=== PATIENT | male | born 1950 | race Caucasian/White ===

== ENCOUNTER 2024-02-10 22:49 | Inpatient (IN) | payer MEDICARE, BC, SELFPAY ==
[2024-02-10 19:20] VITALS: BP 130/61
--- NOTE | 2024-02-10 19:27 | ED.GENMED ---
History of Present Illness
General
Chief Complaint: Fainting/Passed Out
Source: patient, records, spouse, healthcare financial analyst and ambulance crew
Exam Limitations: clinical condition
Time Seen by Provider: 02/10/24 19:21
Nursing documentation reviewed up to this point in time: agreed with
Travel History
Have you had any contact with someone who has COVID-19?: No
Do you have any symptoms of coronavirus? Fever > 100 degrees, chills, cough, shortness of breath, sore throat, loss of taste or smell, muscle aches, or headache?: No
History of Present Illness
History of Present Illness:
Patient is a 73-year-old quadriplegic male with chronic indwelling Velez presents to the emergency department with prolonged period of hypotension. Patient typically has episodes of hypotension and becomes syncopal anywhere from 5 minutes to an
hour. However today it lasted for over 2 hours. Patient was started on an antibiotic this morning because his urine looks questionably infected. Patient has not had fevers. Patient is complaining of muscle pain at this time and has not received
his baclofen since noon time. Patient has not had a fever. Patient was also noted to have a cough. Patient is disoriented.
Past History
Past History
ED Past Medical History: Other (Cervical spinal cord injury 2014) and Other (Kidney stones, orthostatic hypotension, neurogenic bladder with indwelling Velez, hyponatremia, mineralocorticoid deficiency)
Social History
Tobacco: Non-smoker
Personal:
Review of Systems
Review of Systems
All Other Systems: ROS reviewed and negative except as documented in HPI and ROS
Constitutional: Reports fatigue; Denies fever or chills
EENT: Reports no symptoms
Respiratory: Reports cough; Denies trouble breathing
Cardiac: Reports no symptoms
ABD/GI: Reports no symptoms
: Reports dark urine
Musculoskeletal: Reports muscle pain
Skin: Reports no symptoms
Neurological: Reports other (Chronic quadriplegia)
Phy Exam
Physical Exam
Physical Exam:
Physical Exam
General: mild to moderate distress, alert and usual mental status, well nourished, well hydrated
HENT: Normocephalic, supple with no lymphadenopathy, no thyromegaly
Eyes: Clear sclera, conjuctiva without injection
Heart: Regular rhythm and rate. No S3, S4. No murmur. No NVD
Lungs: No respiratory distress, no stridor, lung sounds are coarse but clear and equal bilaterally, chest wall symmetrical and nontender
Abdomen: Soft, nontender, no organomegaly, BS good
Neuro: Alert and oriented to name, CN II - XII intact, spastic quadriplegia
Skin: no rash
Extremities: No edema, cyanosis
Scores
Heart Failure Risk
Heart Failure Risk Score: Not Applicable
Heart Score for Chest Pain Patients
STEMI patient?: Not applicable
Withdrawal Assessment of Alcohol
Withdrawal Assessment Completed?: Not applicable
Course
Orders/Labs/Results
Orders:
Orders
02/10/24 19:23
Cardiac Monitoring- Treatment ONCE
0.9% Sodium Chloride 1000 ml [Nss] 1,000 ml IV BOLUS
Pulse Ox/cont/shift [RESP] Urgent
Quantity: 1
02/10/24 19:24
Electrocardiogram (*1) Urgent
Reason for Study: Other
Other Reason for Exam: sepsis
EKG- Treatment ONCE
CR Chest - 2 Views Urgent
Comment:
Reason For Exam: hypotension and cough
02/10/24 19:32
Complete Blood Count/With Diff Urgent
Lactic Acid Q4H
Comment: CANCEL 2nd LACTIC ACID IF 1st LACTIC ACID IS LESS THAN 2
Blood Culture Q30M
CARLITO Source: Blood/Venous
Specimen Description:
Tizanidine [Zanaflex] 4 mg PO NOW STA
02/10/24 19:42
Baclofen [Lioresal] 30 mg PO NOW STA
02/10/24 19:49
Blood Culture Q30M
CARLITO Source: Blood/Venous
Specimen Description:
02/10/24 20:00
Baclofen [Lioresal] 90 mg PO BID
02/10/24 20:07
Comprehensive Metabolic Panel Urgent
Urinalysis Reflex To Culture Urgent
Date Specimen was Collected: 02/10/24
Time Specimen was Collected: 19:50
Urine Microscopic Reflex Cult Urgent
Urine Culture Urgent
CARLITO Source: U
Specimen Description:
Date Specimen was Collected: 02/10/24
Time Specimen was Collected: 19:50
02/10/24 20:37
3% Sodium Chloride 250 ml [Sodium Chloride 3%] 250 ml IV ONCE
02/10/24 20:41
Cefepime HCl [Maxipime] 2,000 mg IV NOW STA
Gentamicin Sulfate [Gentamicin] 140 mg 0.9% Sodium Chloride [Nss] 50 ml IV NOW
02/10/24 20:45
0.9% Sodium Chloride 1000 ml [Nss] 1,000 ml IV 200 mls/hr
02/10/24 23:30
Lactic Acid Q4H
Comment: CANCEL 2nd LACTIC ACID IF 1st LACTIC ACID IS LESS THAN 2
Abnormal Lab Results
02/10/24 02/10/24
19:32 20:07
WBC 17.2 H 10^3/uL
(4.8-10.8)
RBC 4.19 L 10^6/uL
(4.70-6.10)
Hgb 12.5 L g/dL
(13.0-18.0)
Hct 35.5 L %
(39.0-52.0)
RDW 14.7 H %
(11.5-14.5)
Plt Count 121 L 10^3/uL
(130-400)
MPV 10.9 H fL
(7.4-10.4)
Abs Immat Gran (auto) 0.1 H 10^3/uL
(0-0.05)
Absolute Neuts (auto) 14.8 H 10^3/uL
(1.4-6.5)
Absolute Lymphs (auto) 1.0 L 10^3/uL
(1.2-3.4)
Absolute Monos (auto) 1.2 H 10^3/uL
(0.1-0.6)
Immature Gran % 0.7 H %
(0-0.5)
Neutrophils % 86.0 H %
(42.2-75.2)
Lymphocytes % 6.0 L %
(20.5-51.1)
Sodium 117 L* mmol/L
(135-145)
Chloride 90 L mmol/L
(98-107)
Creatinine 0.6 L mg/dL
(0.7-1.3)
Glucose 106 H mg/dl
(70-99)
Calcium 8.2 L mg/dl
(8.4-10.2)
AST 60 H U/L
(17-59)
Alkaline Phosphatase 143 H U/L
(38-126)
Total Protein 5.7 L g/dl
(6.3-8.2)
Albumin 2.9 L g/dl
(3.5-5.0)
Urine Ketones 3+ A
(Negative)
Ur Occult Blood Reflex 3+ A
(Negative)
Urine Nitrite (Reflex) Positive A
(Negative)
Leukocyte Esterase Rfl 2+ A
(Negative)
Urine RBC 11-15 A /HPF
(0-2)
Urine WBC (Reflex) 50-60 A /HPF
(0-5)
Urine Bacteria (Reflex) Many A
(Negative)
02/10/24 19:32
02/10/24 20:07
Vital Signs
Initial and Last Documented VS:
Initial Vital Signs
Temp Pulse Resp BP Pulse Ox
97.5 F 69 16 130/61 95
02/10/24 19:20 02/10/24 19:20 02/10/24 19:20 02/10/24 19:20 02/10/24 19:20
Last Documented Vital Signs
Temp Pulse Resp BP Pulse Ox
97.5 F 77 16 132/66 95
02/10/24 19:20 02/10/24 20:15 02/10/24 20:15 02/10/24 20:00 02/10/24 19:20
*Radiology
Radiology exam reviewed: preliminary read by ED provider (LEON)
*Pulse Oximetry
Patient hypoxic: no
*EKG
Interpreted by ED Provider?: Yes
EKG Intrepretation Date: 02/10/24
EKG Intrepretation Time: 20:45
Interpretation: normal
Comparison EKG: no changes
Heart Rate: 71
Rate: normal
Rhythm: sinus
[place]: normal axis
Interval: normal interval
QRS Pattern: normal QRS
Ischemia: no ischemia
*Quality Assurance Tech Interpretation
Rate: normal
Interpretation: normal
Heart Rate: 70
Rhythm: sinus
*Critical Care Note
Total Time (30-74mins, 75-104mins- exclusive of procedures): 35 minutes
Update Note
Update Note:
Patient has significant hyponatremia and will be placed on 3%. In addition patient has elevated white count along with what appears to be UTI. Patient will be started on antibiotics.
ED Attending Note
-
Portions of this chart may have been created with voice recognition software.� Occasional wrong word or��sound alike� substitutions may have occurred due to the inherent limitations of voice recognition software.
Discharge Plan
Departure
Patient Disposition: Admit
Date of Disposition: 02/10/24
Time of Disposition: 20:46
Admit to: Telemetry
Admit to doctor: Hospitalist
Presentation/result/management discussed w/ accepting MD/DO: Hospitalist
Patient with high blood pressure during this ER visit?: No
Condition: Serious
Covid-19: Not Applicable
Discharge Problem:
Acute hyponatremia, Acute UTI, Syncope due to orthostatic hypotension
Prescriptions:
No Action
tizanidine 2 MG tablet
2 mg PO BID@0800,1600
tolterodine 4 MG capsule,extended release 24hr
4 mg PO HS
baclofen 10 MG tablet
30 mg PO QID@08,12,16,20
gabapentin 100 MG capsule
100 mg PO TID@0800,1200,1600
famotidine 20 MG tablet
20 mg PO DAILY
fludrocortisone 0.1 MG tablet
0.1 mg PO BID@0800,1200
multivitamin with folic acid [Tab-A-Queenie] 1 TABLET tablet
1 tab PO DAILY
Lidocaine 2%
1 applic IA DAILY PRN (Reason: prior to bowel program)
hydrocortisone 1 % Lotion
1 applic TOPICAL DAILY
Rx Instructions:
apply to face
cranberry 450 mg Tablet
4,200 mg PO DAILY
tizanidine 2 mg tablet
4 mg PO BID@1200,2000
hydrocortisone 2.5 % cream
1 applic TOPICAL HS
Rx Instructions:
apply to face
cholecalciferol (vitamin D3) [Vitamin D3] 50 mcg (2,000 unit) Tablet
50 mcg PO DAILY
docusate sodium [Enemeez] 283 mg/5 mL Enema
283 mg IA DAILY PRN (Reason: part of bowel program)
magnesium oxide 500 mg Tablet
500 mg PO BID Qty: 30 0RF
Interventions
Interventions:
*Risk Screen - Suicide Last Done: 02/10/24 19:24
*General Assessment Last Done: 02/10/24 19:23
*Neglect/Abuse Screening Last Done: 02/10/24 19:24
*ED COVID-19 Vaccine History Last Done: 02/10/24 19:23
ED- Cardiac Assessment Last Done: 02/10/24 19:24
ED- Neurological Assessment Last Done: 02/10/24 19:35
Discharge Date and Time
Print Language: FAROESE
[2024-02-10] MEDS: ZANAFLEX 4 MG PO (19:40)
[2024-02-10] MEDS: LIORESAL 30 MG PO (19:44)
[2024-02-10] MEDS: NSS 1000 IV ×2 (19:47→20:56)
[2024-02-10 19:54] LABS: % Basophils 0.3 % (0-2); % Eosinophils 0.2 % (0-6); % Immature Granulocytes 0.7 % (0-0.5); % Monocytes 6.8 % (1.7-9.3); Absolute Basophils 0.1 10^3/uL (0-0.2); Absolute Immature Granulocytes 0.1 10^3/uL (0-0.05); Absolute Monocytes 1.2 10^3/uL (0.1-0.6); Absolute Neutrophils 14.8 10^3/uL (1.4-6.5); Hematocrit 35.5 % (39.0-52.0); Hemoglobin 12.5 g/dL (13.0-18.0); Mean Corp Hgb Conc. 35.2 g/dL (33.0-37.0); Mean Corpuscular Hgb 29.8 pg (27.0-31.0); Mean Corpuscular Volume 84.7 fL (80.0-94.0); Mean Platelet Volume 10.9 fL (7.4-10.4); Nucleated Red Blood Cells % 0 % (-); Platelet Count 121 10^3/uL (130-400); Red Blood Cell Count 4.19 10^6/uL (4.70-6.10); Red Cell Dist. Width 14.7 % (11.5-14.5); White Blood Cell Count 17.2 10^3/uL (4.8-10.8)
[2024-02-10 20:00] VITALS: BP 132/66
[2024-02-10 20:05] LABS: Lactic Acid 1.2 mmol/L (0.7-2.0)
[2024-02-10 20:17] LABS: Urine Albumin Trace (Neg - Trace); Urine Bilirubin Negative (Negative); Urine Character Slightly Cloudy (Clear); Urine Color Yellow; Urine Glucose Negative (Negative); Urine Ketone 3+ (Negative); Urine Leukocyte 2+ (Negative); Urine Nitrite Positive (Negative); Urine Occult Blood 3+ (Negative); Urine Urobilinogen Negative (Neg - 1+)
[2024-02-10 20:27] LABS: Urine Squamous Cell 0-2 /LPF (Few)
[2024-02-10 20:28] LABS: Urine White Cell 50-60 /HPF (0-5)
[2024-02-10 20:29] LABS: Urine Bacteria Many (Negative); Urine Calcium Oxalate Crystals Present
[2024-02-10 20:35] LABS: ALT (SGPT) 38 U/L (0-50); AST (SGOT) 60 U/L (17-59); Albumin 2.9 g/dl (3.5-5.0); Alkaline Phosphatase 143 U/L (38-126); Blood Urea Nitrogen 20 mg/dl (9-20); Calcium 8.2 mg/dl (8.4-10.2); Carbon Dioxide 23 mmol/L (22-30); Chloride 90 mmol/L (98-107); Glucose 106 mg/dl (70-99); Potassium 4.2 mmol/L (3.5-5.1); Sodium 117 mmol/L (135-145); Total Bilirubin 0.9 mg/dl (0.2-1.3); Total Protein 5.7 g/dl (6.3-8.2); eGFR > 60.00
[2024-02-10] MEDS: MAXIPIME 2000 MG IV (20:54)
[2024-02-10 21:00] VITALS: BP 142/76
[2024-02-10] MEDS: GENTAMICIN 53.5 MG IV (21:02)
[2024-02-10] MEDS: SODIUM CHLORIDE 3% 250 IV (21:05)
[2024-02-10 21:49] LABS: Osmolality Urine 566 mOsm/kg (300-900)
[2024-02-10 22:00] VITALS: BP 144/74
[2024-02-10 22:03] LABS: Urine Sodium 10 mmol/L (30-90)
--- NOTE | 2024-02-10 22:09 | HPS.HSE ---
Family Physician
-
Family Physician: INTERVIEWE UNKNOWN - PT NOT
Chief Complaint
-
Stiffness, Hypotension
History of Present Illness
Patient is a 73y M with PMH significant for quadriplegia and chronic indwelling Velez who presents to ED for evaluation of hypotension. History obtained from patient, caregiver and ED staff. Patient has intermittent episodes of hypotension -
typically lasting only several minutes - due to his spinal cord injury. Today, he had a prolonged episode of low BP at home last over 2 hours. Patient complains of some increased 'stiffness' but offers no other complaints. Caregiver felt that he
seemed more altered / confused than usual and he was brought to the ED for further evaluation.
Patient was reportedly started on abx this AM for suspected UTI based on appearance of urine.
In the ED, he answers questions but is confused / disoriented. He did not known that he was in the hospital.
He denies any headache, fevers / chills, abdominal pain, N/V. He complains of 'tightness' or 'stiffness' in the muscles.
Medical History
Past Medical History
Past Medical History: Reports Other
Additional Past Medical History:
Spinal Cord Injury / Quadriplegia
Chronic Hypotension
Sacral Wound
Chronic Urinary Retention / Chronic Velez
Renal Cell Carcinoma
Past Surgical History: Reports Other
Additional Past Surgical History:
Spinal Fusion (C3 - T1)
Partial Left Nephrectomy
Social History
Tobacco: Non-smoker
Alcohol: None
Family History
Family History: Other (Father: Prostate Cancer, HTN, CHF Mother: HTN)
Allergies / Home Medications
Allergies reflects when Allergies were last updated in [employer].
Home Medications with original date entered in [employer]
Allergy/Medication List:
Allergies
Allergy/AdvReac Type Severity Reaction Status Date / Time
pollen extracts Allergy nasal Verified 08/14/23 16:34
symptoms
Home Medications
baclofen 10 mg tablet 30 mg PO QID@08,12,16,20 Muscle spasms 10/25/20
famotidine 20 mg tablet 20 mg PO DAILY Gastrointestinal issue 10/25/20
fludrocortisone 0.1 mg tablet 0.05 mg PO BID@1030,1430 INFLAMMATION 10/25/20
gabapentin 100 mg capsule 100 mg PO TID@0800,1200,1600 Pain 10/25/20
tizanidine 2 mg tablet 2 mg PO BID@0800,1600 Muscle Spasms 10/25/20
tolterodine 4 mg capsule,extended release 24 hr 4 mg PO HS Urinary issue 10/25/20
tizanidine 2 mg tablet 4 mg PO BID@1200,2000 Muscle Spasms 08/14/23
Review of Systems
-
History Source: Patient
A 12 point ROS was completed and negative except as noted: Yes
Constitutional: Denies Fever or Chills
Respiratory: Denies Cough or Trouble Breathing
Abdomen/GI: Denies Abdominal Pain
Musculoskeletal: Reports Muscle Stiffness
Neurological: Denies Headache
Physical Exam
Vital Signs
Vital Signs
Temp Pulse Resp BP Pulse Ox
97.5 F 80 11 142/76 95
02/10/24 19:20 02/10/24 21:00 02/10/24 21:00 02/10/24 21:00 02/10/24 19:20
Physical Exam
General: Other (73y M in no acute distress. Chronically ill-appearing.)
HEENT: Other (Dry MM. Neck supple.)
Respiratory: Clear; No Wheezes, Rales or Rhonchi
Cardiac: S1/S2 and Regular Rhythm; No Murmur
GI: Soft, Non Tender, Non Distended and Normal Bowel Sounds
Genito-urinary: Other (Velez in place draining light yellow urine.)
Musculoskeletal: No Clubbing, No Cyanosis, No Edema and Other (Chronic contractures / deformity x 4 extremities secondary to SCI.)
Neuro: Awake; No Oriented
Laboratory Results
-
02/10/24 19:32
02/10/24 20:07
Laboratory Results
Lactic Acid Cancelled 02/10/24 23:30
Total Bilirubin 0.9 mg/dl (0.2-1.3) 02/10/24 20:07
AST 60 U/L (17-59) H 02/10/24 20:07
ALT 38 U/L (0-50) 02/10/24 20:07
Alkaline Phosphatase 143 U/L (38-126) H 02/10/24 20:07
Impression/Plan
-
A/P: Patient is a 73y M with PMH significant for quadriplegia s/p spinal cord injury who presents to ED for evaluation of low blood pressure.
Hypotension
- Admit for further evaluation and treatment.
- Patient with chronic / intermittent hypotension secondary to spinal cord injury.
- Noted to have prolonged hypotension today. Normotensive so far in the ED.
- Continue usual med regimen including Florinef.
- Follow for changes in BP.
- Treat infectious process noted below.
Hyponatremia
Acute Metabolic Encephalopathy secondary to the above
- Na = 117 with confusion / disorientation.
- Check urine studies.
- 3% saline overnight and follow for improvement in labs / cognition.
- Nephrology evaluation.
- Urine studies added to labs.
- Fluid restriction.
CAUTI
Sepsis secondary to the above
Chronic Indwelling Velez Catheter
- Patient reportedly started on abx this AM for UTI.
- Patient presents with leukocytosis, acute TME and evidence for urinary infectious source.
- UA consistent with infection including pos nitrates in setting of chronic catheter.
- Continue IV abx with cefepime for now.
- Follow-up culture data and and adjust abx as appropriate.
Spinal Cord Injury
Quadriplegia
- Continue usual supportive medications including Baclofen and Tizanidine.
- Hold for sedation / confusion.
Sacral Wound
- Wound Care evaluation for local care recommendations.
DVT Prophylaxis: Lovenox
Code Status: Full
[2024-02-10 23:00] VITALS: BP 126/59
[2024-02-10 23:50] VITALS: BP 119/67; BMI 20.3
--- NOTE | 2024-02-11 00:06 | PTCARENOTE ---
Received pt from ED via stretcher. Pulled over onto bed. AAOx2, disoriented to year. VSS. No complaints of pain, states he 'just doesn't feel good' however cannot elaborate. Will occasionally answer questions but will stop talking midway through
sentence. Cooperative. Oriented pt to floor. Call knowles exchanged to E-Z CALL for patient.
[2024-02-11] MEDS: DETROL LA 4 MG PO ×2 (00:32→20:22)
[2024-02-11 00:58] LABS: Sodium 128 mmol/L (135-145)
[2024-02-11 01:28] LABS: TSH Reflex To Free T4 1.96 uIU/ml (0.47-4.68)
[2024-02-11 03:40] VITALS: BP 64/34
[2024-02-11 05:19] LABS: Hematocrit 33.1 % (39.0-52.0); Hemoglobin 11.3 g/dL (13.0-18.0); Mean Corp Hgb Conc. 34.1 g/dL (33.0-37.0); Mean Corpuscular Hgb 29.8 pg (27.0-31.0); Mean Corpuscular Volume 87.3 fL (80.0-94.0); Mean Platelet Volume 11.8 fL (7.4-10.4); Platelet Count 122 10^3/uL (130-400); Red Blood Cell Count 3.79 10^6/uL (4.70-6.10); Red Cell Dist. Width 14.8 % (11.5-14.5); White Blood Cell Count 12.5 10^3/uL (4.8-10.8)
[2024-02-11 05:44] LABS: Blood Urea Nitrogen 16 mg/dl (9-20); Calcium 8.8 mg/dl (8.4-10.2); Carbon Dioxide 29 mmol/L (22-30); Chloride 98 mmol/L (98-107); Estimated Creatinine Clearance 107 ml/min; Glucose 97 mg/dl (70-99); Potassium 4.6 mmol/L (3.5-5.1); Sodium 129 mmol/L (135-145); eGFR > 60.00
[2024-02-11 07:00] VITALS: BP 116/67
[2024-02-11] MEDS: MAXIPIME 1000 MG IV ×2 (08:55→20:23)
[2024-02-11] MEDS: STERILE WATER FOR INJECTION 10 ML IV ×2 (08:56→20:23)
[2024-02-11] MEDS: ZANAFLEX 2 MG PO ×2 (08:56→16:55)
[2024-02-11] MEDS: LIORESAL 30 MG PO ×4 (08:56→20:23)
[2024-02-11] MEDS: PEPCID 20 MG PO (08:57)
[2024-02-11] MEDS: NEURONTIN 100 MG PO ×3 (08:57→16:54)
--- NOTE | 2024-02-11 09:21 | W.PN.HOSP.TC ---
Today's Communication/Plan
-
see bold
Assessment / Plan
Assessment / Plan
HPI: 73y M with PMH significant for quadriplegia s/p spinal cord injury who presents to ED for evaluation of low blood pressure.
Gram-negative bacteremia
Catheter associated urinary tract infection
-Blood cultures growing gram-negative rods
-Velez catheter changed this admission
-Continue IV cefepime, follow-up on ID and sensitivities
Hypotension
- Resolved, continue usual med regimen including Florinef.
Hyponatremia
Acute Metabolic Encephalopathy secondary to the above
- Na = 117 with confusion / disorientation.
- Appreciate nephrology input, status post hypertonic saline
- Sodium improved at 129, continue fluid restriction, treat as per nephrology
Spinal Cord Injury
Quadriplegia
- Continue usual supportive medications including Baclofen and Tizanidine.
- Patient lives at [facility] independent with caregiver
Sacral Wound
- Wound care, turn every 2 hours
DVT Prophylaxis: Lovenox
Code Status: Full
Physical Exam
General: Frail, elderly, no acute distress
HEENT: Normocephalic, Atraumatic, EOMI, MMM
Respiratory: Clear to Auscultation bilaterally
Cardiac: Normal S1/S2, Regular Rate and Rhythm
GI: Soft, Nontender, Nondistended, Normal Bowel Sounds
Extremities: No Clubbing, Cyanosis, or Edema
Neuro: Quadriplegia
Psych: Calm, Cooperative
Derm: No Visible lesions
Anticipated Discharge: 24 - 48 hours
Subjective/Interval History
-
Date of Service: February 11, 2024
Patient reports feeling better. He still feels weak and tired. No fever. No vomiting.
Objective Data
-
Labs:
Laboratory Results
02/11/24 02/11/24 02/11/24
00:30 04:49 04:49
WBC 12.5 H
Hgb 11.3 L
Hct 33.1 L
Plt Count 122 L
Sodium 128 L D Cancelled 129 L
Potassium 4.6
Chloride 98
Carbon Dioxide 29
BUN 16
Creatinine 0.5 L
Glucose 97
Calcium 8.8
02/11/24 02/11/24
09:18 13:00
WBC
Hgb
Hct
Plt Count
Sodium Pending Pending
Potassium
Chloride
Carbon Dioxide
BUN
Creatinine
Glucose
Calcium
Vital Signs:
Vital Signs
Temp Pulse Resp BP Pulse Ox
97.7 F 75 18 116/67 94
02/11/24 07:00 02/11/24 07:00 02/11/24 07:00 02/11/24 07:00 02/11/24 07:00
I&O
02/10/24 02/11/24 02/12/24
06:59 06:59 06:59
Output Total 2450 / 2450
Balance -2450 / -2450
--- NOTE | 2024-02-11 09:54 | PTOTSP ---
CHART REVIEWED AND SPOKE WITH RN. PATIENT CONTACTED BEDSIDE. PATIENT NOT INTERESTED IN THERAPY WHILE INHOUSE STATING THAT HE FEELS MORE COMFORTABLE CONTINUING WITH OUT OF BED MOBILITY/SPT TO WHEELCHAIR WITH CAREGIVERS/HIS OWN DME/ENVRIONMENT AT
HOME. PATIENT NOT INTERESTED IN THERAPISTS RETURNING DURING HIS STAY. WILL DISCHARGE FROM THERAPY SERVICES AT THIS TIME.
[2024-02-11 10:14] LABS: Sodium 131 mmol/L (135-145)
[2024-02-11] MEDS: FLORINEF 0.0500000000000000028 MG PO ×2 (10:30→16:55)
[2024-02-11 11:00] VITALS: BP 122/81
--- NOTE | 2024-02-11 11:00 | WOUNDNOTE ---
[facility] RN note: Patient admitted with UTI, sepsis, quadriplegia. Patient has caregivers (3 total). He has a regular hospital bed at home and electric scooter with a gel seat cushion.
See H&P for complete history.
PMH: Quadriplegia, Velez, chronic HOTN, urinary retention, renal cell ca, spinal fusion, partial L nephrectomy, chronic contractures.
Wound Location and type/assessment: Patient admitted with: 2 pinpoint dry scabbed areas on coccyx newly vs almost healed stage 2 pressure injury. L lower gluteal fold chronic appearing linear discolored dull purple skin his caregiver suspects is
r/t his scooter. Skin on heels blanchable mild red and intact. Patient's caregiver has patient on his L side currently to do his routine bowel regime. PCT Srinivas will notify nursing or this curriculum writer if patient's L hip has skin breakdown. Pillow between
legs.
Appetite: good.
Pressure redistribution devices in place: [employer] Accumax. JO-ANN Roth to coordinate switching bed to a [employer] air or applying an air overlay mattress.
Plan: Protective silicone border foam being used on sacrum. Air chair cushion given to help off load heels. Instructed patient and caregiver pressure injury prevention measures. Care plan to be updated. Will follow as needed. Discussed with JO-ANN
Ira.
--- NOTE | 2024-02-11 11:00 | WOUNDNOTE ---
GLUTEAL FOLD (L LOWER)
[2024-02-11] MEDS: ZANAFLEX 4 MG PO ×2 (12:05→20:23)
[2024-02-11 13:13] LABS: Sodium 131 mmol/L (135-145)
--- NOTE | 2024-02-11 16:06 | W.CON.NEPH ---
Consultation
-
Date/Time Consultation Requested: February 11, 2024 7:00 AM
Date/Time Consultation Performed: February 11, 2024 4:00 PM
Requesting Provider: Parish
Performing Provider: Letty
Reason for Consultation: Hyponatremia
Medical History
-
Chief Complaint: Hyponatremia
History of Present Illness:
Patient is a 73y M with PMH significant for quadriplegia and chronic indwelling Velez who presents to ED for evaluation of hypotension. History obtained from patient, caregiver and ED staff. Patient has intermittent episodes of hypotension -
typically lasting only several minutes - due to his spinal cord injury. He had a prolonged episode of low BP at home last over 2 hours. Patient complains of some increased 'stiffness' but offers no other complaints. Caregiver felt that he seemed
more altered / confused than usual and he was brought to the ED for further evaluation.
Patient was reportedly started on abx this AM for suspected UTI based on appearance of urine. On presentation the patient was confused and his serum sodium level was 117. The patient has a history of chronic hypotension maintained on
fludrocortisone. He also has a history of chronic hyponatremia for which she was to be maintained on a fluid restriction. He has chronic urinary retention due to cervical spine injury with subsequent quadriplegia and requires chronic Velez
catheter. Due to acute confusion with profound hyponatremia he received 3% saline overnight. Subsequent blood cultures have revealed gram-negative bacilli likely due to underlying urosepsis.
He denies any headache, fevers / chills, abdominal pain, N/V. He complains of 'tightness' or 'stiffness' in the muscles.
Past Medical History
Past Medical History: Reports Other
Additional Past Medical History:
Spinal Cord Injury / Quadriplegia
Chronic Hypotension
Sacral Wound
Chronic Urinary Retention / Chronic Velez
Renal Cell Carcinoma
Cervical spinal fusion
Partial left nephrectomy
Social History
Lives at [facility] independently with caregiver
Tobacco: Non-Smoker
Alcohol: None
Family History
No CKD
Allergies / Home Medications
Allergy/AdvReac Type Severity Reaction Status Date / Time
pollen extracts Allergy nasal Verified 08/14/23 16:34
symptoms
�Medication �Instructions �Recorded �Confirmed �Type
baclofen 10 mg tablet 30 mg PO QID@08,12,16,20 Muscle 10/25/20 02/10/24 History
spasms
famotidine 20 mg tablet 20 mg PO DAILY Gastrointestinal 10/25/20 02/10/24 History
issue
fludrocortisone 0.1 mg tablet 0.05 mg PO BID@1030,1430 10/25/20 02/10/24 History
INFLAMMATION
gabapentin 100 mg capsule 100 mg PO TID@0800,1200,1600 Pain 10/25/20 02/10/24 History
tizanidine 2 mg tablet 2 mg PO BID@0800,1600 Muscle Spasms 10/25/20 02/10/24 History
tolterodine 4 mg capsule,extended 4 mg PO HS Urinary issue 10/25/20 02/10/24 History
release 24 hr
tizanidine 2 mg tablet 4 mg PO BID@1200,2000 Muscle Spasms 08/14/23 02/10/24 History
Review of Systems
-
History Source: Patient and Coordinating Provider
All other systems: Negative unless noted
Respiratory: No Symptoms
Cardiac: Syncope
Abdomen/GI: No Symptoms
: Incontinence and Other (Chronic Velez)
Musculoskeletal: Muscle Stiffness
Skin: No Symptoms
Neurological: Other (Confusion on presentation)
Endocrine: No Symptoms
Hematologic/Lymphatic: No Symptoms
Physical Exam
Vital Signs
Vital Signs
Temp Pulse Resp BP Pulse Ox
97.5 F 82 18 122/81 97
02/11/24 11:00 02/11/24 11:00 02/11/24 11:00 02/11/24 11:00 02/11/24 11:00
Lab Results
02/11/24 04:49
02/11/24 12:48
Physical Exam
General: AOx3
HEENT: PERRL, EOMI, Anicteric, Conjunctivae Clear, Ear/Nose Intact, Oropharynx Clear/Moist, Dentition Intact, Neck Supple, Trachea Midline, No JVD and No Thyromegaly
Respiratory: Clear
Cardiac: S1/S2 and Regular Rate/Rhythm
Breast: Deferred by me
Abdomen: Nontender, Nondistended, Normal Bowel Sounds and No Hepatosplenomegaly
Rectal: Deferred by Provider
Genito-urinary: Other (Velez)
Musculoskeletal: No Clubbing, No Cyanosis and No Edema
Skin: No Rash, Warm, Dry, No Clubbing, No Cyanosis, Normal Turgor and No Bruising
Neuro: Strength (2 out of 5 right upper extremity paresis of the left upper extremity and bilateral lower extremity)
Hematologic/Lymphatic: No Cervical Lymphadenopathy, No Submandibular Lymphadenopathy, No Supraclavicular Lymphadenopathy and Other (+1 radial and pedal pulses)
Psych: Insight/judgement good
Assessment/Plan
-
Impression:
Gram-negative bacilli bacteremia (likely urosepsis)
Hyponatremia: acute on chronic (117 on presentation)
Chronic hypotension on fludrocortisone
History of quadriplegic with cervical neck injury
History of left partial nephrectomy for renal cell carcinoma
Chronic sacral wound
Chronic Velez catheter
Plan:
Serum sodium level elevating after 3% saline provided
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
Maintain fluid restriction of 48 ounces at this time
Number 3% at this time
Maintain fludrocortisone for blood pressure support, blood pressure currently acceptable
Patient currently on cefepime for gram-negative bacteremia, Velez catheter was exchanged
If patient persist with hyponatremia we may add sodium tablets next
Data Reviewed
-
Radiology: Image Personally Visualized and interpreted (Chest x-ray personally reviewed by me did not reveal pneumonia or CHF cervical spine hardware noted)
Medical Tests (Nuc Med, Echo etc): Other (EKG report personally reviewed noted sinus rhythm at 71 beats per minute)
Labs: Labs Reviewed by me (Urine osmolarity urine sodium BMP reviewed)
Old Records: Reviewed (Reviewed old sodium from 08/18/2023 sodium 139, reviewed nephrology consult from August 2023 for hyponatremia)
[2024-02-11 16:09] VITALS: BP 142/84
[2024-02-11] MEDS: LOVENOX 40 MG SC (16:55)
[2024-02-11 19:51] VITALS: BP 154/90
[2024-02-11 23:41] VITALS: BP 124/70
[2024-02-12 03:34] VITALS: BP 118/66
[2024-02-12 06:13] LABS: Hematocrit 33.7 % (39.0-52.0); Hemoglobin 11.6 g/dL (13.0-18.0); Mean Corp Hgb Conc. 34.4 g/dL (33.0-37.0); Mean Corpuscular Volume 87.1 fL (80.0-94.0); Platelet Count 124 10^3/uL (130-400); Red Blood Cell Count 3.87 10^6/uL (4.70-6.10); Red Cell Dist. Width 15.2 % (11.5-14.5); White Blood Cell Count 5.1 10^3/uL (4.8-10.8)
[2024-02-12 06:44] LABS: Blood Urea Nitrogen 13 mg/dl (9-20); Calcium 8.8 mg/dl (8.4-10.2); Carbon Dioxide 32 mmol/L (22-30); Chloride 98 mmol/L (98-107); Estimated Creatinine Clearance 105 ml/min; Glucose 80 mg/dl (70-99); Magnesium 1.9 mg/dl (1.6-2.3); Phosphorus 3.2 mg/dl (2.5-4.5); Potassium 4.3 mmol/L (3.5-5.1); Sodium 132 mmol/L (135-145); eGFR > 60.00
[2024-02-12 07:30] VITALS: BP 148/86
--- NOTE | 2024-02-12 08:59 | W.PN.HOSP.TC ---
Today's Communication/Plan
-
Continue IV cefepime
Assessment / Plan
Assessment / Plan
HPI: 73y M with PMH significant for quadriplegia s/p spinal cord injury who presents to ED for evaluation of low blood pressure.
Gram-negative bacteremia
Catheter associated urinary tract infection
-Blood cultures growing gram-negative rods
-Velez catheter changed this admission
-Repeat blood cultures
-Leukocytosis resolved, continue IV cefepime, follow-up on ID and sensitivities
Hypotension
- Resolved, continue Florinef.
Hyponatremia
Acute Metabolic Encephalopathy secondary to the above
- Na = 117 with confusion / disorientation upon admission
- Appreciate nephrology input, status post hypertonic saline
- Sodium improved at 132, was 129, continue fluid restriction, treat as per nephrology
Spinal Cord Injury
Quadriplegia
- Continue usual supportive medications including Baclofen and Tizanidine.
- Patient lives at [facility] independent with caregiver
Healing stage 2 coccyx pressure injury, POA
-Continue wound care, offloading
DVT Prophylaxis: Lovenox
Code Status: Full
Updated on phone 02/11
Physical Exam
General: Frail, elderly, no acute distress
HEENT: Normocephalic, Atraumatic, EOMI, MMM
Respiratory: Clear to Auscultation bilaterally
Cardiac: Normal S1/S2, Regular Rate and Rhythm
GI: Soft, Nontender, Nondistended, Normal Bowel Sounds
Extremities: No Clubbing, Cyanosis, or Edema
Neuro: Quadriplegia
Psych: Calm, Cooperative
Derm: Healing sacral wound
Anticipated Discharge: Within 24 hours
Subjective/Interval History
-
Date of Service: February 12, 2024
Patient reports feeling better. No fever, no vomiting.
Objective Data
-
Labs:
Laboratory Results
02/12/24
05:13
WBC 5.1
Hgb 11.6 L
Hct 33.7 L
Plt Count 124 L
Sodium 132 L
Potassium 4.3
Chloride 98
Carbon Dioxide 32 H
BUN 13
Creatinine 0.6 L
Glucose 80
Calcium 8.8
Vital Signs:
Vital Signs
Temp Pulse Resp BP Pulse Ox
97.7 F 72 16 148/86 96
02/12/24 07:30 02/12/24 07:30 02/12/24 07:30 02/12/24 07:30 02/12/24 07:30
I&O
02/11/24 02/12/24 02/13/24
06:59 06:59 06:59
Intake Total 960 / 960
Output Total 2450 / 2450 3650 / 3650 350 / 350
Balance -2450 / -2450 -2690 / -2690 -350 / -350
[2024-02-12] MEDS: NEURONTIN 100 MG PO ×3 (09:50→16:50)
[2024-02-12] MEDS: LIORESAL 30 MG PO ×4 (09:51→20:59)
[2024-02-12] MEDS: ZANAFLEX 2 MG PO ×2 (09:51→16:50)
[2024-02-12] MEDS: PEPCID 20 MG PO (09:51)
[2024-02-12] MEDS: STERILE WATER FOR INJECTION 10 ML IV ×2 (09:56→20:45)
[2024-02-12] MEDS: MAXIPIME 1000 MG IV ×2 (09:56→20:45)
--- NOTE | 2024-02-12 10:42 | CM ---
CM following re: d/c planning
Chart reviewed
CM spoke with patient's ex-spouse via phone; IA completed
She states he resides alone at [facility] in a 4th floor [place] apartment with no AIRAM & elevator access
SHOVE UP patient reports assistance at baseline
Pt has no previous SNF hx, he has had recent VN hx with [facility], & is w/c bound
Per the patient's spouse, he is able to self propel, and is able to feed self after set up
Pt has prescription coverage and rx's are filled at [facility]
Pt PCP-Matilde Dexter
Discharge goal is to return home with private care givers and possibly VN
CM will continue to follow patient's progress and assist with any needs at d/c as indicated
PLAN; d/c home with family & private caregivers
[2024-02-12] MEDS: FLORINEF 0.0500000000000000028 MG PO ×2 (11:17→14:34)
[2024-02-12 11:30] VITALS: BP 124/72
--- NOTE | 2024-02-12 11:47 | PN.CDI ---
CDI
- -
CDI:
Physician Documentation Request
Admit Date: 02/10/24 22:49
Dear Doctor Do,
Please review the following and provide your response in the progress notes.
Clinical Indicators:
- 02/10 PN 'Sacral wound' without specificity to type of wound
- 02/10 Wound note indicates healing stage 2 coccyx pressure injury, POA
Physician documentation of the type of wounds is required for compliant documentation. Based on the above clinical findings and your assessment, please provide the following in your progress note:
2. Type (etiology) of ulcer/wound:
- Pressure (decubitus) ulcer
- Arterial (ischemic) ulcer
- Traumatic wound
- Venous stasis ulcer
- Other
Use of terms such as suspected, likely, concern for, or probable (associated with a specific diagnosis that is being evaluated, monitored, or treated as if it exists) are acceptable and can be coded in the inpatient setting, when documented at the
time of discharge.
Thank you,
Jacob Erwin RN
CDI Specialist
Please use your independent medical judgment in providing your response.
*Source: National Pressure Ulcer Advisory Panel (NPUAP)
[2024-02-12] MEDS: ZANAFLEX 4 MG PO ×2 (12:56→20:49)
--- NOTE | 2024-02-12 12:57 | W.PN.NEPH.PH ---
Today's Communication / Plan
-
urine
Assessment/Plan
-
Impression:
Gram-negative bacilli bacteremia (likely urosepsis)
Hyponatremia: acute on chronic (117 on presentation)
Chronic hypotension on fludrocortisone
History of quadriplegic with cervical neck injury
History of left partial nephrectomy for renal cell carcinoma
Chronic sacral wound
Chronic Velez catheter
Plan:
follow BMP
repeat urine studies
abx for bacteremia
continue florinef
-
-
Date of Service: February 12, 2024
CC / HPI / ROS
-
Chief Complaint:
hyponatremia
History of Present Illness:
Na up to 132 with 3%
BP stable on florinef
abx for GNR bcx
Review of Systems:
no CP/SOB
Labs
-
Labs:
WBC 5.1 10^3/uL (4.8-10.8) 02/12/24 05:13
RBC 3.87 10^6/uL (4.70-6.10) L 02/12/24 05:13
Hgb 11.6 g/dL (13.0-18.0) L 02/12/24 05:13
Hct 33.7 % (39.0-52.0) L 02/12/24 05:13
Plt Count 124 10^3/uL (130-400) L 02/12/24 05:13
Sodium 132 mmol/L (135-145) L 02/12/24 05:13
Potassium 4.3 mmol/L (3.5-5.1) 02/12/24 05:13
Chloride 98 mmol/L (98-107) 02/12/24 05:13
Carbon Dioxide 32 mmol/L (22-30) H 02/12/24 05:13
BUN 13 mg/dl (9-20) 03/29/24 05:13
Creatinine 0.6 mg/dL (0.7-1.3) L 02/12/24 05:13
eGFR > 60.00 02/12/24 05:13
Glucose 80 mg/dl (70-99) 02/12/24 05:13
Calcium 8.8 mg/dl (8.4-10.2) 02/12/24 05:13
Phosphorus 3.2 mg/dl (2.5-4.5) 02/12/24 05:13
Albumin 2.9 g/dl (3.5-5.0) L 02/10/24 20:07
Physical Exam
-
Vital Signs:
Vital Signs
Temp Pulse Resp BP Pulse Ox
98.9 F 68 16 124/72 95
02/12/24 11:30 02/12/24 11:30 02/12/24 11:30 02/12/24 11:30 02/12/24 11:30
Cardiovascular:: Regular rate and rhythm
Respiratory:: Bilateral: Coarse
Lung Excursion:: Normal
Abdomen:: Nontender and Soft
Bowel Sounds:: Normal
Extremity Edema:: None: Bilateral:
[2024-02-12 16:05] VITALS: BP 134/78
[2024-02-12] MEDS: LOVENOX 40 MG SC (16:51)
[2024-02-12 19:00] VITALS: BP 138/80
[2024-02-12] MEDS: DETROL LA 4 MG PO (20:45)
[2024-02-12 23:00] VITALS: BP 130/69
[2024-02-13 00:06] LABS: Urine Sodium 59 mmol/L (30-90)
[2024-02-13 00:11] LABS: Osmolality Urine 347 mOsm/kg (300-900)
[2024-02-13 03:00] VITALS: BP 169/88
[2024-02-13 07:35] VITALS: BP 169/88
--- NOTE | 2024-02-13 07:47 | W.PN.HOSP.TC ---
Addendum entered and electronically signed by Roman Mckeon MD 02/22/24 08:37:
Sepsis was present on admission and is now resolved.
Original Note:
Today's Communication/Plan
-
discharge today
Assessment / Plan
Assessment / Plan
HPI: 73y M with PMH significant for quadriplegia s/p spinal cord injury who presents to ED for evaluation of low blood pressure.
Serratia bacteremia
Catheter associated urinary tract infection
-Blood cultures growing Serratia marcescens, sensitive to levaquin
-Velez catheter changed this admission
-Repeat blood cultures NTD
-Leukocytosis resolved
-Change IV cefepime to levaquin to complete 10 day course
Hypotension
- Resolved, continue Florinef.
Hyponatremia
Acute Metabolic Encephalopathy secondary to the above
- Na = 117 with confusion / disorientation upon admission
- Appreciate nephrology input, status post hypertonic saline
- Sodium improved at 133, was 132, was 129, continue fluid restriction, treat as per nephrology
Spinal Cord Injury
Quadriplegia
- Continue usual supportive medications including Baclofen and Tizanidine.
- Patient lives at [facility] independent with caregiver
Healing stage 2 coccyx pressure injury, POA
-Continue wound care, offloading
DVT Prophylaxis: Lovenox
Code Status: Full
Updated on phone 02/11
Physical Exam
General: Frail, elderly, no acute distress
HEENT: Normocephalic, Atraumatic, EOMI, MMM
Respiratory: Clear to Auscultation bilaterally
Cardiac: Normal S1/S2, Regular Rate and Rhythm
GI: Soft, Nontender, Nondistended, Normal Bowel Sounds
Extremities: No Clubbing, Cyanosis, or Edema
Neuro: Quadriplegia
Psych: Calm, Cooperative
Derm: Healing sacral wound
Anticipated Discharge: Today
Subjective/Interval History
-
Date of Service: February 13, 2024
Feels stiff. No CP/SOB/N/V. No fever.
Objective Data
-
Labs:
Laboratory Results
02/13/24
06:00
WBC Pending
Hgb Pending
Hct Pending
Plt Count Pending
Sodium Pending
Potassium Pending
Chloride Pending
Carbon Dioxide Pending
BUN Pending
Creatinine Pending
Glucose Pending
Calcium Pending
Vital Signs:
Vital Signs
Temp Pulse Resp BP Pulse Ox
97.9 F 70 18 169/88 96
02/12/24 23:00 02/13/24 03:00 02/13/24 03:00 02/13/24 03:00 02/13/24 03:00
I&O
02/12/24 02/13/24 02/14/24
06:59 06:59 06:59
Intake Total 960 / 960 1395 / 1395
Output Total 3650 / 3650 2550 / 2550
Balance -2690 / -2690 -1155 / -1155
[2024-02-13 08:50] LABS: Hematocrit 38.2 % (39.0-52.0); Hemoglobin 12.9 g/dL (13.0-18.0); Mean Corp Hgb Conc. 33.8 g/dL (33.0-37.0); Mean Corpuscular Hgb 29.5 pg (27.0-31.0); Mean Corpuscular Volume 87.2 fL (80.0-94.0); Mean Platelet Volume 11.2 fL (7.4-10.4); Platelet Count 160 10^3/uL (130-400); Red Blood Cell Count 4.38 10^6/uL (4.70-6.10); Red Cell Dist. Width 14.6 % (11.5-14.5); White Blood Cell Count 5.7 10^3/uL (4.8-10.8)
[2024-02-13 09:06] LABS: Blood Urea Nitrogen 11 mg/dl (9-20); Calcium 8.7 mg/dl (8.4-10.2); Carbon Dioxide 31 mmol/L (22-30); Chloride 96 mmol/L (98-107); Estimated Creatinine Clearance 105 ml/min; Glucose 85 mg/dl (70-99); Potassium 3.7 mmol/L (3.5-5.1); Sodium 133 mmol/L (135-145); eGFR > 60.00
[2024-02-13 10:00] VITALS: BP 154/88
[2024-02-13] MEDS: LIORESAL 30 MG PO ×2 (10:14→12:33)
[2024-02-13] MEDS: ZANAFLEX 2 MG PO (10:15)
[2024-02-13] MEDS: STERILE WATER FOR INJECTION 10 ML IV (10:15)
[2024-02-13] MEDS: NEURONTIN 100 MG PO ×2 (10:15→12:33)
[2024-02-13] MEDS: MAXIPIME 1000 MG IV (10:15)
[2024-02-13] MEDS: PEPCID 20 MG PO (10:15)
[2024-02-13] MEDS: FLUSH (NSS) 2 FLUSH IV (10:16)
[2024-02-13 11:52] VITALS: BP 141/83
--- NOTE | 2024-02-13 11:54 | W.DCSUMMARY ---
Addendum entered and electronically signed by Roman Mckeon MD 02/22/24 08:37:
Sepsis was present on admission and is now resolved.
Original Note:
Discharge Summary
Discharge Data
Date of Admission: 02/10/24
Date of Discharge: 02/13/24
-
Pending Results: No
Hospital Course
Discharge diagnosis:
Serratia marcescens bacteremia
Suspected Velez catheter associated urinary tract infection
Hypotension
Hyponatremia
Acute toxic metabolic encephalopathy
Quadriplegia
Spinal cord injury
Healing stage II sacral decubitus injury, present upon admission
Hospital course:
73-year-old male with a past medical history of spinal cord injury, quadriplegia, neurogenic bladder with chronic Velze, and hypotension requiring Florinef presents from [facility] for confusion and persistent hypotension.
Patient was found to have a leukocytosis, and a sodium level of 117.
Urine analysis was suspicious for UTI, his Velez was changed. He received IV cefepime.
Patient was seen in conjunction with nephrology for his hyponatremia. He received hypertonic saline. His sodium improved, was 133 on the day of discharge. His mentation returned to baseline.
Patient received IV fluids, and his hypotension resolved. His blood pressure remained stable on his home Florinef dose.
Blood cultures grew out Serratia marcescens, sensitive to cefepime and fluoroquinolones. Urine cultures showed over contamination. Patient was transitioned to levofloxacin to complete a 10-day course. Repeat blood cultures were negative.
Patient's medical conditions have been optimized. He is medically stable for discharge back to [facility].
Disposition: Home with home care
Discharge planning: Required 38 minutes
Discharge Plan
-
Patient Disposition: Home with Home Care
Discharge Diagnosis/Procedures: Serratia bacteremia
Catheter associated urinary tract infection
Hypotension
Hyponatremia
Spinal cord injury
Quadriplegia
Healing stage II coccyx pressure injury
Condition: Fair
Diet: Regular
Activity: As tolerated
Other Services: VN
Activity Restrictions/Additional Instructions:
Turning schedule
Elevate heels off bed with pillow and/or air chair cushion.
High end pressure redistributing chair cushion.
Please take your antibiotics as directed, first dose is 02/14/2024.
Follow-up with your primary care doctor in 1 week.
Referrals:
UNKNOWN - PT NOT,INTERVIEWE [Family Provider] -
Prescriptions:
New
levofloxacin 750 mg Tablet
750 mg PO DAILY 7 Days Qty: 7 0RF
Continued
tizanidine 2 MG tablet
2 mg PO BID@0800,1600
tolterodine 4 MG capsule,extended release 24hr
4 mg PO HS
baclofen 10 MG tablet
30 mg PO QID@08,12,16,20
gabapentin 100 MG capsule
100 mg PO TID@0800,1200,1600
famotidine 20 MG tablet
20 mg PO DAILY
fludrocortisone 0.1 MG tablet
0.05 mg PO BID@1030,1430
tizanidine 2 mg tablet
4 mg PO BID@1200,2000
Discharge Orders:
Discharge Patient (As Directed); Ordered 02/13/24
Ordered By: Roman Mckeon
Discharge Date and Time
Print Language: POLISH
[2024-02-13] MEDS: LEVAQUIN 750 MG PO (12:33)
[2024-02-13] MEDS: ZANAFLEX 4 MG PO (12:33)
[2024-02-13] MEDS: FLORINEF 0.0500000000000000028 MG PO ×2 (12:36→14:19)
--- NOTE | 2024-02-13 12:51 | W.PN.NEPH.PH ---
Today's Communication / Plan
-
dc planning
Assessment/Plan
-
Impression:
Gram-negative bacilli bacteremia (likely urosepsis)
Hyponatremia: acute on chronic (117 on presentation)
Chronic hypotension on fludrocortisone
History of quadriplegic with cervical neck injury
History of left partial nephrectomy for renal cell carcinoma
Chronic sacral wound
Chronic Velez catheter
Plan:
follow BMP
continue florinef
dc planning
-
-
Date of Service: February 13, 2024
CC / HPI / ROS
-
Chief Complaint:
hyponatremia
History of Present Illness:
Na up to 133
BP stable on florinef
abx for GNR bcx
Review of Systems:
no CP/SOB
Labs
-
Labs:
WBC 5.7 10^3/uL (4.8-10.8) 02/13/24 08:20
RBC 4.38 10^6/uL (4.70-6.10) L 02/13/24 08:20
Hgb 12.9 g/dL (13.0-18.0) L 02/13/24 08:20
Hct 38.2 % (39.0-52.0) L 02/13/24 08:20
Plt Count 160 10^3/uL (130-400) D 02/13/24 08:20
Sodium 133 mmol/L (135-145) L 02/13/24 08:20
Potassium 3.7 mmol/L (3.5-5.1) 02/13/24 08:20
Chloride 96 mmol/L (98-107) L 02/13/24 08:20
Carbon Dioxide 31 mmol/L (22-30) H 02/13/24 08:20
BUN 11 mg/dl (9-20) 02/13/24 08:20
Creatinine 0.4 mg/dL (0.7-1.3) L 02/13/24 08:20
eGFR > 60.00 02/13/24 08:20
Glucose 85 mg/dl (70-99) 02/13/24 08:20
Calcium 8.7 mg/dl (8.4-10.2) 02/13/24 08:20
Phosphorus 3.2 mg/dl (2.5-4.5) 02/12/24 05:13
Albumin 2.9 g/dl (3.5-5.0) L 02/10/24 20:07
Physical Exam
-
Vital Signs:
Vital Signs
Temp Pulse Resp BP Pulse Ox
98.2 F 69 18 141/83 95
02/13/24 11:52 02/13/24 11:52 02/13/24 11:52 02/13/24 11:52 02/13/24 11:52
Cardiovascular:: Regular rate and rhythm
Respiratory:: Bilateral: Coarse
Lung Excursion:: Normal
Abdomen:: Nontender and Soft
Bowel Sounds:: Normal
Extremity Edema:: None: Bilateral:
--- NOTE | 2024-02-13 13:00 | CM ---
Addendum entered by Margaret Sears 02/13/24 13:03:
IMM explained and signed @ 1246
Original Note:
Met with patient and private duty home health aide at the bedside
Case Management Consult completed; patient agreed to home care VN with [facility]; referral sent via [facility]
Transportation: private duty [employer]PER[employer]OR will provide ride home via private vehicle
Per request of patient, I call his ex- to inform her of his discharge today
Plan: discharge to home with home health services from [facility]
[2024-02-13 14:30] VITALS: BP 154/90
--- NOTE | 2024-02-17 13:18 | PN.CDI ---
CDI
- -
CDI:
Physician Documentation Request
Admit Date: 02/10/24 22:49
Dear Doctor Do,
Please review the following and provide your response in the progress notes.
Clinical Indicators:
The diagnosis of sepsis was documented on H&P but is not consistently noted in subsequent documentation.
- 02/09 H&P 'CAUTI...Sepsis secondary to the above'
- 'Patient presents with leukocytosis, acute TME and evidence for urinary infectious source'
- 02/12 PN 'Serratia bacteremia...Catheter associated urinary tract infection'
Please clarify the following:
____ - Sepsis was present on admission and is now resolved.
____ - Sepsis was ruled out
____ - Other
Use of terms such as suspected, likely, concern for, or probable (associated with a specific diagnosis that is being evaluated, monitored, or treated as if it exists) are acceptable and can be coded in the inpatient setting, when documented at the
time of discharge.
Thank you,
Jacob Erwin RN
CDI Specialist
Please use your independent medical judgment in providing your response.
== END 2024-02-13 15:10 | disposition home health service (06) | DRG 698 ==
LOC: 4 EAST ACU 22:49
PROVIDERS: Specialist; ADMITTING PHYSICIAN Hospitalist; ATTENDING PHYSICIAN Family Medicine; CONSULT PHYSICIAN Specialist; EMERGENCY PHYSICIAN Emergency Medicine
DX: T83.511A Infection and inflammatory reaction due to indwelling urethral catheter, initial encounter (principal); A41.53 Sepsis due to Serratia; G82.50 Quadriplegia, unspecified; G92.8 Other toxic encephalopathy; E22.2 Syndrome of inappropriate secretion of antidiuretic hormone; N39.0 Urinary tract infection, site not specified; N31.9 Neuromuscular dysfunction of bladder, unspecified; Y84.6 Urinary catheterization as the cause of abnormal reaction of the patient, or of later complication, without mention of misadventure at the time of the procedure; B96.89 Other specified bacterial agents as the cause of diseases classified elsewhere; L89.152 Pressure ulcer of sacral region, stage 2; I95.1 Orthostatic hypotension; Y73.2 Prosthetic and other implants, materials and accessory gastroenterology and urology devices associated with adverse incidents; Y92.9 Unspecified place or not applicable; Z98.1 Arthrodesis status; Z87.442 Personal history of urinary calculi; S14.109S Unspecified injury at unspecified level of cervical spinal cord, sequela
CPT/HCPCS: 51702; 71046; 80048; 80053; 81003; 81015; 82570; 83605; 83735; 83935; 84100; 84295; 84300; 84443; 85025; 85027; 87040; 87070; 87086; 87149; 87186; 87205; 93005; 94760; 96361; 96374; 96375; 99291

== ENCOUNTER 2024-06-01 21:02 | Inpatient (IN) | payer MEDICARE, BC, SELFPAY ==
[2024-06-01] VITALS (21 sets, daily range): BP systolic 78–137; BP diastolic 50–79
--- NOTE | 2024-06-01 17:15 | ED.GENMED ---
History of Present Illness
General
Chief Complaint: Change Level of Consciousness
Time Seen by Provider: 06/01/24 17:15
History of Present Illness
History of Present Illness:
HPI: The patient presents from [facility] by ambulance due to markedly decreased level of consciousness. He was responding only to painful stimuli. He is a quadriplegic. He was able to communicate with his earlier today. The says
that he slept poorly last night. He has been unresponsive over the last few hours. says they recently placed him on an antibiotic for possible urinary tract infection.
EXAM:
GENERAL: The patient has eyes closed and does not respond to painful stimuli, mildly hypotensive
HEENT: Moist oral mucosa, eyes are somewhat sunken
CARDIOVASCULAR: Regular rate and rhythm
PULMONARY: No respiratory distress, breathing is nonlabored, equal and clear breath sounds
ABDOMEN: Soft and nontender with no peritoneal signs
NEUROLOGIC: The patient keeps his eyes closed. He has absent range of motion/strength in the upper and lower extremities (history of quadriplegia), he is nonverbal, he does not respond to painful stimuli�no response to sternal rub
EXTREMITIES: Does not move the extremities
PYSCHIATRIC: Currently nonverbal
TIME OF INITIAL ENCOUNTER: 5:30 PM
NUMBER AND COMPLEXITY OF PROBLEMS ADDRESSED AT THE ENCOUNTER
� Chronic conditions affecting care: Renal cancer status post left nephrectomy, incomplete C1-C4 quadriplegia, chronically low blood pressure, chronic urinary catheter
� Acute Exacerbation and/or Progression of Chronic Illness: This is an acute problem
� Differential Diagnosis includes: CVA, electrolyte abnormality, UTI/sepsis, dehydration, LUKAS
AMOUNT AND/OR COMPLEXITY OF DATA TO BE REVIEWED AND ANALYZED
� I performed an independent evaluation of and my interpretation is:
EKG: Sinus 66, nonspecific ST abnormality
CT: CT brain shows no acute abnormality
X-rays: Chest x-ray shows no clear acute abnormality
Laboratory Studies: White count 16.3, hemoglobin 10.4, sodium 122, renal function normal, urinalysis from indwelling Velez catheter showed 50-60 white cells
Other:
� Review of other/old records: I reviewed discharge summary from this past January�at that time he was hyponatremic with a sodium of 117 and did receive 3% saline. He is on fludrocortisone for chronic hypotension and during that
admission he was found to have gram-negative bacilli likely leading to the urosepsis.
� Clinical information was obtained by an independent historian: I spoke to at bedside
� Prescriptions/Medications Considered but not given: Consider 3% however after discussion with renal we will hold off
� Further testing considered but not performed:
RISK OF COMPLICATIONS AND/OR MORBIDITY OR MORTALITY OF PATIENT MANAGEMENT
� Social determinants of health affecting care: Resides at [facility]
� Discussion with other providers: Discussed case with renal, Dr. Wilkinson, who recommends against giving 3% but just agrees with volume resuscitation.
� Escalation of care including admission/observation vs risk of discharge considered: The patient remains unresponsive to painful stimuli. He is found to be hyponatremic. The patient was given 2 L of IV fluids between EMS and
here.
Past History
Past History
ED Past Medical History: Other (Cervical spinal cord injury 2015) and Other (Kidney stones, orthostatic hypotension, neurogenic bladder with indwelling Velez, hyponatremia, mineralocorticoid deficiency)
Social History
Tobacco: Non-smoker
Personal:
Phy Exam
Physical Exam
Physical Exam:
See HPI
Course
Orders/Labs/Results
Orders:
Orders
06/01/24 17:08
EKG [Electrocardiogram (*1)] Urgent
Reason for Study: Fatigue / Weakness
EKG- Treatment ONCE
06/01/24 17:15
Complete Blood Count/With Diff Urgent
Comprehensive Metabolic Panel Urgent
Troponin I Urgent
Urinalysis Reflex To Culture Urgent
Date Specimen was Collected: 06/01/24
Time Specimen was Collected: 17:14
Urine Microscopic Reflex Cult Urgent
Urine Culture Urgent
CARLITO Source: U
Specimen Description:
Date Specimen was Collected: 06/01/24
Time Specimen was Collected: 17:14
06/01/24 17:16
0.9% Sodium Chloride 1000 ml [Nss] 1,000 ml IV BOLUS
06/01/24 17:28
CT Head W/o Iv Contrast Urgent
Comment:
Reason For Exam: alt ms
0.9% Sodium Chloride 1000 ml [Nss] 1,000 ml IV BOLUS
06/01/24 18:18
CefTRIAXone [Rocephin] 1,000 mg IV NOW STA
06/01/24 18:22
CR Chest Portable - 1 View Urgent
Comment:
Reason For Exam: alt ms
Reason Study Needs to be Portable: Patient Unstable
06/01/24 18:25
Lactic Acid Q4H
Comment: CANCEL 2nd LACTIC ACID IF 1st LACTIC ACID IS LESS THAN 2
Blood Culture Urgent
CARLITO Source: Blood/Venous
Specimen Description:
06/01/24 18:27
Cefepime HCl [Maxipime] 1,000 mg IV NOW STA
06/01/24 18:50
Ciprofloxacin 400 mg/[id number] [Cipro 400 mg] 200 ml IV NOW
06/01/24 19:55
3% Sodium Chloride 250 ml [Sodium Chloride 3%] 250 ml IV ONCE
06/01/24 22:30
Lactic Acid Q4H
Comment: CANCEL 2nd LACTIC ACID IF 1st LACTIC ACID IS LESS THAN 2
06/02/24 00:00
Basic Metabolic Panel Routine
Abnormal Lab Results
06/01/24
17:15
WBC 16.3 H 10^3/uL
(4.8-10.8)
RBC 3.49 L 10^6/uL
(4.70-6.10)
Hgb 10.4 L g/dL
(13.0-18.0)
Hct 29.4 L %
(39.0-52.0)
RDW 15.2 H %
(11.5-14.5)
MPV 10.5 H fL
(7.4-10.4)
Abs Immat Gran (auto) 0.1 H 10^3/uL
(0-0.05)
Absolute Neuts (auto) 13.5 H 10^3/uL
(1.4-6.5)
Absolute Lymphs (auto) 0.9 L 10^3/uL
(1.2-3.4)
Absolute Monos (auto) 1.8 H 10^3/uL
(0.1-0.6)
Immature Gran % 0.6 H %
(0-0.5)
Neutrophils % 82.8 H %
(42.2-75.2)
Lymphocytes % 5.5 L %
(20.5-51.1)
Monocytes % 10.9 H %
(1.7-9.3)
Sodium 122 L mmol/L
(135-145)
Chloride 91 L mmol/L
(98-107)
Glucose 119 H mg/dl
(70-99)
Calcium 8.0 L mg/dl
(8.4-10.2)
Alkaline Phosphatase 129 H U/L
(38-126)
Total Protein 5.1 L g/dl
(6.3-8.2)
Albumin 2.6 L g/dl
(3.5-5.0)
Ur Occult Blood Reflex 2+ A
(Negative)
Urine Nitrite (Reflex) Positive A
(Negative)
Leukocyte Esterase Rfl 2+ A
(Negative)
Urine RBC 3-6 A /HPF
(0-2)
Urine WBC (Reflex) 50-60 A /HPF
(0-5)
Urine Bacteria (Reflex) Many A
(Negative)
06/01/24 17:15
06/01/24 17:15
Vital Signs
Initial and Last Documented VS:
Initial Vital Signs
Temp Pulse Resp BP Pulse Ox
98.9 F 65 11 103/63 94
06/01/24 17:06 06/01/24 17:06 06/01/24 17:06 06/01/24 17:06 06/01/24 17:06
Last Documented Vital Signs
Temp Pulse Resp BP Pulse Ox
98.9 F 62 11 103/63 97
06/01/24 17:15 06/01/24 17:15 06/01/24 17:15 06/01/24 17:08 06/01/24 17:15
*Critical Care Note
Total Time (30-74mins, 75-104mins- exclusive of procedures): 60 minutes
comment:
The patient was hypotensive upon arrival and is responding to volume resuscitation. I emergently discussed case with renal. The patient was frequently reassessed from a neurologic status but he remains unchanged. CT imaging unremarkable. I have
also emergently started on antibiotics for the likelihood of UTI/possible sepsis.
ED Attending Note
-
Portions of this chart may have been created with voice recognition software.� Occasional wrong word or��sound alike� substitutions may have occurred due to the inherent limitations of voice recognition software.
Discharge Plan
Departure
Patient Disposition: Admit
Date of Disposition: 06/01/24
Time of Disposition: 19:34
Presentation/result/management discussed w/ accepting MD/DO: Hospitalist
Patient with high blood pressure during this ER visit?: Yes
Discharge Problem:
Acute hyponatremia
Prescriptions:
No Action
tizanidine 2 MG tablet
2 mg PO BID@0800,1600
tolterodine 4 MG capsule,extended release 24hr
4 mg PO HS
baclofen 10 MG tablet
30 mg PO QID@08,12,16,20
gabapentin 100 MG capsule
100 mg PO TID@0800,1200,1600
famotidine 20 MG tablet
20 mg PO DAILY
fludrocortisone 0.1 MG tablet
0.05 mg PO BID@1030,1430
tizanidine 2 mg tablet
4 mg PO BID@1200,2000
Theragen Tablet
1 tab PO DAILY
magnesium oxide 500 mg magnesium Tablet
500 mg PO BID
cholecalciferol (vitamin D3) 50 mcg (2,000 unit) Tablet
50 mcg PO DAILY
omega 2-mix-ghq-fish oil [Fish Oil] 1,000 mg (120 mg-180 mg) Capsule
1 cap PO BID
cranberry
4,200 mg PO DAILY
lidocaine 5 % gel
30 ml Q48H
Referrals:
Matilde Dexter MD [Family Provider] -
Interventions
Interventions:
*Risk Screen - Suicide Last Done: 06/01/24 17:06
*General Assessment Last Done: 06/01/24 17:06
*Neglect/Abuse Screening Last Done: 06/01/24 17:06
*ED COVID-19 Vaccine History Last Done: 06/01/24 17:11
ED- Cardiac Assessment Last Done: 06/01/24 17:11
ED- Neurological Assessment Last Done: 06/01/24 17:11
ED-Psychological Assessment Last Done: 06/01/24 17:26
ED- Pulmonary Assessment Last Done: 06/01/24 17:11
Discharge Date and Time
Print Language: SAO TOMEAN
[2024-06-01] MEDS: NSS 1000 IV (17:23)
[2024-06-01 17:36] LABS: % Basophils 0.2 % (0-2); % Immature Granulocytes 0.6 % (0-0.5); % Lymphocytes 5.5 % (20.5-51.1); % Monocytes 10.9 % (1.7-9.3); % Neutrophils 82.8 % (42.2-75.2); Absolute Immature Granulocytes 0.1 10^3/uL (0-0.05); Absolute Lymphocytes 0.9 10^3/uL (1.2-3.4); Absolute Monocytes 1.8 10^3/uL (0.1-0.6); Absolute Neutrophils 13.5 10^3/uL (1.4-6.5); Hematocrit 29.4 % (39.0-52.0); Hemoglobin 10.4 g/dL (13.0-18.0); Mean Corp Hgb Conc. 35.4 g/dL (33.0-37.0); Mean Corpuscular Hgb 29.8 pg (27.0-31.0); Mean Corpuscular Volume 84.2 fL (80.0-94.0); Mean Platelet Volume 10.5 fL (7.4-10.4); Nucleated Red Blood Cells % 0 % (-); Platelet Count 145 10^3/uL (130-400); Red Blood Cell Count 3.49 10^6/uL (4.70-6.10); Red Cell Dist. Width 15.2 % (11.5-14.5); White Blood Cell Count 16.3 10^3/uL (4.8-10.8)
[2024-06-01 17:40] LABS: Urine Albumin Trace (Neg - Trace); Urine Bilirubin Negative (Negative); Urine Character Clear (Clear); Urine Color Yellow; Urine Glucose Negative (Negative); Urine Ketone Negative (Negative); Urine Leukocyte 2+ (Negative); Urine Nitrite Positive (Negative); Urine Occult Blood 2+ (Negative); Urine Urobilinogen Negative (Neg - 1+)
[2024-06-01 17:48] LABS: ALT (SGPT) 33 U/L (0-50); AST (SGOT) 47 U/L (17-59); Albumin 2.6 g/dl (3.5-5.0); Alkaline Phosphatase 129 U/L (38-126); Blood Urea Nitrogen 20 mg/dl (9-20); Carbon Dioxide 26 mmol/L (22-30); Chloride 91 mmol/L (98-107); Glucose 119 mg/dl (70-99); Potassium 4.5 mmol/L (3.5-5.1); Sodium 122 mmol/L (135-145); Total Bilirubin 0.4 mg/dl (0.2-1.3); Total Protein 5.1 g/dl (6.3-8.2); eGFR > 60.00
[2024-06-01 17:51] LABS: Urine Squamous Cell 0-2 /LPF (Few)
[2024-06-01 17:53] LABS: Urine Bacteria Many (Negative); Urine Calcium Oxalate Crystals Seen; Urine White Cell 50-60 /HPF (0-5)
[2024-06-01 17:54] LABS: Urine Mucus Few
[2024-06-01 17:59] LABS: Troponin I 0.026 ng/ml
[2024-06-01] MEDS: MAXIPIME 1000 MG IV ×2 (18:32→20:59)
[2024-06-01 18:58] LABS: Lactic Acid 1.1 mmol/L (0.7-2.0)
[2024-06-01] MEDS: CIPRO 400 MG 200 IV (19:18)
--- NOTE | 2024-06-01 19:47 | W.CON.NEPH ---
Consultation
-
Date/Time Consultation Requested: June 01, 2024 6 PM
Date/Time Consultation Performed: June 01, 2024 7 PM
Requesting Provider: Dr. Hurtado
Performing Provider: Dr Wilkinson
Reason for Consultation: hyponatremia
Medical History
-
Chief Complaint: Hyponatremia
History of Present Illness:
Patient is a 73y M with quadriplegia and chronic indwelling Velez who presents to ED for evaluation of unresponsiveness. He does have labile hypertension likely autonomic insufficiency. His blood pressure is typically variable but is controlled
at this point on Florinef. He had previously been on midodrine though this was discontinued given wider swings of blood pressure. He also has chronic hyponatremia partially managed by the Florinef and now also with qbtj-oqg-yyricsa salt tablets 1
g daily. He is cared for at home his choice by his as well as a another specimen accessioner. According to the , this morning he was fine and conversant. He ate his usual breakfast. Around lunchtime the caregiver as well as both had gone to
run quick errands and when they returned he was essentially unresponsive. He was still spontaneously cough and gone but otherwise cannot be aroused and did not respond to stimuli. As result they brought her to the emergency room. He is not
febrile but urinalysis was dirty. His sodium was noted to be 122, lower than usual for him. Blood pressure was also quite low but did respond somewhat with IV fluids. The says that he also recently had gotten antibiotics again. There have
been no issues with his Velez catheter.
Past Medical History
Spinal Cord Injury / Quadriplegia
Chronic Hypotension
Sacral Wound
Chronic Urinary Retention / Chronic Velez
Renal Cell Carcinoma
Cervical spinal fusion
Partial left nephrectomy
Social History
Lives at [facility] independently with caregiver
Tobacco: Non-Smoker
Alcohol: None
Family History
No CKD
Allergies / Home Medications
Allergy/AdvReac Type Severity Reaction Status Date / Time
pollen extracts Allergy nasal Verified 08/14/23 16:34
symptoms
�Medication �Instructions �Recorded �Confirmed �Type
baclofen 10 mg tablet 30 mg PO QID@08,12,16,20 Muscle 10/25/20 06/01/24 History
spasms
famotidine 20 mg tablet 20 mg PO DAILY Gastrointestinal 10/25/20 06/01/24 History
issue
fludrocortisone 0.1 mg tablet 0.05 mg PO BID@1030,1430 10/25/20 06/01/24 History
INFLAMMATION
gabapentin 100 mg capsule 100 mg PO TID@0800,1200,1600 Pain 10/25/20 06/01/24 History
tizanidine 2 mg tablet 2 mg PO BID@0800,1600 Muscle Spasms 10/25/20 06/01/24 History
tolterodine 4 mg capsule,extended 4 mg PO HS Urinary issue 10/25/20 06/01/24 History
release 24 hr
tizanidine 2 mg tablet 4 mg PO BID@1200,2000 Muscle Spasms 08/14/23 06/01/24 History
cholecalciferol (vitamin D3) 50 50 mcg PO DAILY 06/01/24 06/01/24 History
mcg (2,000 unit) tablet
cranberry 4,200 mg PO DAILY 06/01/24 06/01/24 History
lidocaine 30 ml Q48H bowel program 06/01/24 06/01/24 History
magnesium oxide 500 mg PO BID 06/01/24 06/01/24 History
omega 8-uns-sgl-fish oil 1,000 mg 1 cap PO BID 06/01/24 06/01/24 History
(120 mg-180 mg) capsule (Fish Oil)
therapeutic multivitamin 1 tab PO DAILY 06/01/24 06/01/24 History
Review of Systems
-
Unable to obtain full review of systems at this time due to: Patient Non Verbal
All other systems: Negative unless noted
Physical Exam
Vital Signs
Vital Signs
Temp Pulse Resp BP Pulse Ox
98.9 F 62 11 103/63 97
06/01/24 17:15 06/01/24 17:15 06/01/24 17:15 06/01/24 17:08 06/01/24 17:15
Lab Results
WBC 16.3 10^3/uL (4.8-10.8) H 06/01/24 17:15
RBC 3.49 10^6/uL (4.70-6.10) L 06/01/24 17:15
Hgb 10.4 g/dL (13.0-18.0) L 06/01/24 17:15
Hct 29.4 % (39.0-52.0) L 06/01/24 17:15
Plt Count 145 10^3/uL (130-400) 06/01/24 17:15
Sodium 122 mmol/L (135-145) L 06/01/24 17:15
Potassium 4.5 mmol/L (3.5-5.1) 06/01/24 17:15
Chloride 91 mmol/L (98-107) L 06/01/24 17:15
Carbon Dioxide 26 mmol/L (22-30) 06/01/24 17:15
BUN 20 mg/dl (9-20) 06/01/24 17:15
Creatinine 0.8 mg/dL (0.7-1.3) 06/01/24 17:15
eGFR > 60.00 06/01/24 17:15
Glucose 119 mg/dl (70-99) H 06/01/24 17:15
Calcium 8.0 mg/dl (8.4-10.2) L 06/01/24 17:15
Albumin 2.6 g/dl (3.5-5.0) L 06/01/24 17:15
Physical Exam
Patient is unresponsive and in no distress. Mood and affect could not be obtained, insight and judgment could not be determined. Pupils are equal round and reactive to light, extraocular movements could not be assessed, sclera were anicteric.
Hearing could not be assessed, ears and nose are intact. Oropharynx was clear. Neck was supple with trachea midline and no thyromegaly. Heart was regular rate and rhythm without rubs. Lower extremities without edema. Lungs were clear to
auscultation bilaterally and with normal excursion. Abdomen was soft, nontender, with normal active bowel sounds, and no hepatosplenomegaly. Skin was without rash and with normal turgor.
Data Reviewed
-
Radiology: Image Personally Visualized and interpreted (Chest x-ray on June 01, 2024 by my reading shows vascular prominence only)
CT Scan: Report Reviewed by me (CT head on June 01, 2024 shows no acute disease)
Medical Tests (Nuc Med, Echo etc): Image Personally Visualized and interpreted (EKG on June 01, 2024 by my read shows normal sinus rhythm)
Labs: Labs Reviewed by me (WBC 16.3, hemoglobin 10.4, platelet 145, sodium 122, potassium 4.5, carbon oxide 26, BUN 20, creatinine 0.8, calcium 8.0, lactic acid 1.1, urinalysis positive nitrite 2+ leuk esterase 50 white cells many bacteria)
Old Records: Reviewed (On February 13, 2024 sodium 133)
Assessment/Plan
-
Impression:
Probable urosepsis
UTI
Hyponatremia: acute on chronic (122 on presentation), chronic salt tablets
Chronic labile hypotension on fludrocortisone
History of quadriplegic with cervical neck injury
History of left partial nephrectomy for renal cell carcinoma
Chronic sacral wound
Chronic Velez catheter
Plan:
follow BMP
Hypertonic saline as blood pressure is acceptable given his hypotension history
Check urine studies
Empiric antibiotics
Await cultures
--- NOTE | 2024-06-01 20:08 | HPS.HSE ---
Family Physician
-
Family Physician: Matilde Dexter
Chief Complaint
-
Unresponsiveness
History of Present Illness
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
dysfunction status post chronic indwelling urinary catheter with recent admissions for Serratia bacteremia and severe hyponatremia.
Spouse patient was in usual state of health up until today at around 2 PM when he was found unresponsive at his living facility. The previous state patient was in usual state of health. They noticed that his urine was cloudy. He was also agitated
overnight however he had no other symptoms. This a.m. is usually was his usual self tolerated his usual breakfast and lunch. He had no fevers or chills at the facility. And he had no acute changes in mental status. No seizure-like activities.
He was last seen 30 minutes prior to being found unresponsive. He was apparently unresponsive to sternal rub by EMS.
Spouse reports history of prior unresponsive episodes usually lasting anything for a few minutes to 45 minutes and often associated with orthostatic hypotension. However this episode has been prolonged for now over 4 hours.
Patient unable to provide any additional history. On arrival in the emergency department the patient remained unresponsive. Blood pressure after 1 L of IV fluids was 103/63. His pulse was 62 temperature was 98.9 with oxygen saturation of 97%.
His chest x-ray was clear and ECG showed normal sinus rhythm without any acute changes and unchanged from prior. White count was elevated at 16.3. Hemoglobin was stable at 10.4 with a stable platelet count of 143. Sodium was 122 today.
BUN/creatinine was 20/0.8. Rest of the electrolytes were actually unremarkable. CT of the head was negative for any acute intracranial process.
Lactic acid was 1.1. Troponin was negative.
Medical History
Past Medical History
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
Additional Past Medical History:
Neurogenic bladder s/p chronic indwelling catheter
Orthostatic hypotension
Past Surgical History: Reports None
Social History
Unable to obtain full social history at this time due to: Acuity
Tobacco: Non-smoker
Alcohol: None
Drug: None
Personal:
Living: With Family
Employment: Disabled
Family History
Family History: Not pertinent
Allergies / Home Medications
Allergies reflects when Allergies were last updated in [employer].
Home Medications with original date entered in [employer]
Allergy/Medication List:
Allergies
Allergy/AdvReac Type Severity Reaction Status Date / Time
pollen extracts Allergy nasal Verified 08/14/23 16:34
symptoms
Home Medications
baclofen 10 mg tablet 30 mg PO QID@08,12,16,20 Muscle spasms 10/25/20
famotidine 20 mg tablet 20 mg PO DAILY Gastrointestinal issue 10/25/20
fludrocortisone 0.1 mg tablet 0.05 mg PO BID@1030,1430 INFLAMMATION 10/25/20
gabapentin 100 mg capsule 100 mg PO TID@0800,1200,1600 Pain 10/25/20
tizanidine 2 mg tablet 2 mg PO BID@0800,1600 Muscle Spasms 10/25/20
tolterodine 4 mg capsule,extended release 24 hr 4 mg PO HS Urinary issue 10/25/20
tizanidine 2 mg tablet 4 mg PO BID@1200,2000 Muscle Spasms 08/14/23
cholecalciferol (vitamin D3) 50 mcg (2,000 unit) tablet 50 mcg PO DAILY 06/01/24
cranberry 4,200 mg PO DAILY 06/01/24
lidocaine 30 ml Q48H bowel program 06/01/24
magnesium oxide 500 mg PO BID 06/01/24
omega 0-opv-xnj-fish oil 1,000 mg (120 mg-180 mg) capsule (Fish Oil) 1 cap PO BID 06/01/24
therapeutic multivitamin 1 tab PO DAILY 06/01/24
Review of Systems
-
History Source: Family
Constitutional: Reports Sleep Disturbance
EENT: Reports No Symptoms
Respiratory: Reports No Symptoms
Cardiac: Reports No Symptoms
Abdomen/GI: Reports No Symptoms
: Reports No Symptoms
Musculoskeletal: Reports No Symptoms
Skin: Reports No Symptoms
Neurological: Reports Other (Unresponsive)
Endocrine: Reports No Symptoms
Hematologic/Lymphatic: Reports No Symptoms
Psych: Reports No Symptoms
Physical Exam
Vital Signs
Vital Signs
Temp Pulse Resp BP Pulse Ox
98.9 F 62 11 103/63 97
06/01/24 17:15 06/01/24 17:15 06/01/24 17:15 06/01/24 17:08 06/01/24 17:15
Physical Exam
General: Other (Unresponsive)
HEENT: NormoCephalic, Anicteric, Moist mucous membranes and No Ptosis
Respiratory: Clear
Cardiac: S1/S2 and Regular Rhythm
Breast: Deferred by me
GI: Soft
Rectal: Deferred by Provider
Genito-urinary: Clear Urine
Musculoskeletal: No Clubbing, No Cyanosis and No Edema
Neuro: Other (Unresponsive)
Hematologic/Lymphatic: No Lymphadenopathy
Psych: Other
Laboratory Results
-
06/01/24 17:15
06/01/24 17:15
Laboratory Results
Lactic Acid 1.1 mmol/L (0.7-2.0) 06/01/24 18:25
Total Bilirubin 0.4 mg/dl (0.2-1.3) 06/01/24 17:15
AST 47 U/L (17-59) 06/01/24 17:15
ALT 33 U/L (0-50) 06/01/24 17:15
Alkaline Phosphatase 129 U/L (38-126) H 06/01/24 17:15
Troponin I 0.026 ng/ml 06/01/24 17:15
Data Reviewed
-
Diagnostic Radiology: Image Personally Visualized and interpreted
CT Scan: Report Reviewed by me
Medical Tests (Nuc Med, Echo, EKG etc): Image Personally Visualized and interpreted
Lab Data: Labs Reviewed by me
Old Records: Reviewed
Impression/Plan
-
IMPRESSION:
PLAN:
1. Unresponsive - Patient with h/o orthostatic hypotension and recurrent syncope presents with unresponsiveness now lasting several hours. Maintains airways and breathing for now. Hypotensive on arrival in ED. Suspect toxic metabolic possibly
secondary to infection, electrolytes and or medications. Protecting airway but uncertain of acute respiratory acidosis may be contributing.
- admit to icu
- check blood gas, if no significant retention will continue monitoring however if acidotic will need intubation
- hold baclofen and tizanidine for now
- correct hyponatremia
- treat sepsis as below
- re-evaluate in am, may need EEG and additional neuro imaging if remains unresponsive
- canal boat captain consult
- keep MAP > 60 with pressors if needed.
2. Sepsis - hypotension with leukocytosis. H/O Serratia bacteremia with likely urinary source. Negative lactic acid.
- admit to icu
- resuscitation with 30ml/kg of NS for now,
- blood and urine cultures sent
- stress dose steroids for now
- based on source, will continue cefepime 2g and cipro. May need meropenem
- ID consultation
3. Hyponatremia - Na 122, Recurrent.
- NPO
- nephrology consulted. Patient started on hypertonic saline
- repeat chemistries q 4h
- stress dose hydrocortisone for now, holding fludrocortisone
DVT PPX - lovenox sq
GI PPX - famotidine iv daily
Code Status - Full Code for now
[2024-06-01] MEDS: SODIUM CHLORIDE 3% 250 IV (20:16)
[2024-06-01 20:20] LABS: Venous Blood Gas B.E. 3.2 mmol/L (-4 to +4); Venous Blood Gas O2 Sat % 97.3 %; Venous Blood Gas pCO2 49 mmHg (35-48); Venous Blood Gas pH 7.38 (7.32-7.43); Venous Blood Gas pO2 74 mmHg (30-50)
[2024-06-01] MEDS: NSS 500 IV (21:13)
[2024-06-01] MEDS: FLUSH (NSS) 1 FLUSH IV (21:13)
[2024-06-01] MEDS: LEVOPHED 250 IV (21:19)
[2024-06-01 22:29] LABS: INR 1.45; PT 17.7 Sec (11.4-14.6)
[2024-06-01 22:30] LABS: APTT 40.8 Sec (23.4-35.0)
[2024-06-01 22:36] LABS: Magnesium 1.8 mg/dl (1.6-2.3); Phosphorus 3.4 mg/dl (2.5-4.5)
--- NOTE | 2024-06-01 23:45 | W.PN.SEPSIS ---
Sepsis
Vital Signs
Temp Pulse Resp BP Pulse Ox
98.7 F 71 7 134/73 98
06/01/24 23:12 06/01/24 23:00 06/01/24 23:45 06/01/24 23:00 06/01/24 23:12
Physical Exam
Physical Exam:
A focused exam was performed after fluid resuscitation.
Capillary Refill
Bilateral Upper Extremity:
Hilaria Time: Less than 3 sec
Bilateral Lower Extremity:
Hilaria Time: Less than 3 sec
Pulse Evaluation
Bilateral Radial:
Pulse Evaluation: Present
Bilateral Dorsalis Pedis:
Pulse Evaluation: Present
[2024-06-01] MEDS: SOLU-CORTEF 50 MG IV (23:53)
[2024-06-02] VITALS (28 sets, daily range): BP systolic 110–188; BP diastolic 61–105; BMI 21.2
--- NOTE | 2024-06-02 | PTCARENOTE ---
pt arrived from the ED, admitted for unresponsiveness, pt responds to pain and some verbal stimuli, b/l hands contracted, generalized stiffness, SR with PVCs on the monitor, lungs diminished, 2L NC, NPO, +BS, chronic #16 howie leong red see flow
sheet, pt on 3% at 300ml/hr and levo on standby.
[2024-06-02 02:33] LABS: Blood Urea Nitrogen 15 mg/dl (9-20); Calcium 8.4 mg/dl (8.4-10.2); Carbon Dioxide 26 mmol/L (22-30); Chloride 101 mmol/L (98-107); Estimated Creatinine Clearance 122 ml/min; Glucose 102 mg/dl (70-99); Potassium 4.1 mmol/L (3.5-5.1); Sodium 132 mmol/L (135-145); eGFR > 60.00
--- NOTE | 2024-06-02 03:45 | PTCARENOTE ---
on re assessment pt opens eyes spontaneously, more alert, aaox to self, able to answer yes and no questions, denies pain and SOB, called and was updated, nurse care manager will be coming in the AM per .
[2024-06-02] MEDS: SOLU-CORTEF 50 MG IV (06:04)
[2024-06-02 07:00] LABS: Hemoglobin 10.4 g/dL (13.0-18.0); Mean Corp Hgb Conc. 34.7 g/dL (33.0-37.0); Mean Corpuscular Hgb 29.5 pg (27.0-31.0); Mean Corpuscular Volume 85.2 fL (80.0-94.0); Mean Platelet Volume 10.9 fL (7.4-10.4); Platelet Count 179 10^3/uL (130-400); Red Blood Cell Count 3.52 10^6/uL (4.70-6.10); Red Cell Dist. Width 15.3 % (11.5-14.5); White Blood Cell Count 10.9 10^3/uL (4.8-10.8)
[2024-06-02 07:13] LABS: Cortisol, Random 19.5 ug/dl
--- NOTE | 2024-06-02 07:45 | PTCARENOTE ---
Assumed care of patient. Pt rec'd sleeping and drowsy but easily arousable. Knows name, , and place. Denies any pain. Able to let needs be known but is a quadraplegic at baseline. Bilateral upper arms/hands contracted....bilateral foot drop
noted. S1 S2 reg w/ NSR on monitor. Weak PP. Trace generalized edema...heels elevated on pillows. Rec'd on 2L N/C...sats 97%. Placed on R/A...sats 94%. Lungs clear but diminished. Encouraged to cough and deep breath. Moist NPC. Abdomen
round...+BS. Pt's home health resident care manager rn at bedside. He states that pt has a normal bowel routine that he does at [facility] where he dissempacts pt every other day. Pt dissempacted for moderate formed brown stool. Chronic leong draining yellow
urine w/ sediment. Skin pale in color...sacrum intact. Dry intact optifoams scattered on feet/heels. 18P RW flushed and intact. 18P LAC flushed and intact. VS documented. Will continue to monitor closely.
[2024-06-02] MEDS: PEPCID 20 MG IV (07:59)
[2024-06-02] MEDS: NSS (PRESERVATIVE FREE) 8 ML IV (07:59)
[2024-06-02] MEDS: STERILE WATER FOR INJECTION 10 ML IV (08:07)
[2024-06-02] MEDS: MAXIPIME 2000 MG IV (08:07)
[2024-06-02] MEDS: CIPRO 400 MG 200 IV ×2 (08:13→20:17)
[2024-06-02 08:21] LABS: Blood Urea Nitrogen 13 mg/dl (9-20); Calcium 8.4 mg/dl (8.4-10.2); Carbon Dioxide 28 mmol/L (22-30); Chloride 102 mmol/L (98-107); Estimated Creatinine Clearance 111 ml/min; Glucose 109 mg/dl (70-99); Potassium 4.2 mmol/L (3.5-5.1); Sodium 134 mmol/L (135-145); eGFR > 60.00
--- NOTE | 2024-06-02 09:22 | W.PN.NEPH.PH ---
Today's Communication / Plan
-
follow BMP
Assessment/Plan
-
Impression:
Probable urosepsis
UTI
Hyponatremia: acute on chronic (122 on presentation), chronic salt tablets
Chronic labile hypotension on fludrocortisone
History of quadriplegic with cervical neck injury
History of left partial nephrectomy for renal cell carcinoma
Chronic sacral wound
Chronic Velez catheter
Plan:
follow BMP
wean pressors
return to florinef/NaCl tabs
speech eval, restart po intake
no additional fluids at this time unless Na continues to rise
critical care time 31 minutes
-
-
Date of Service: June 02, 2024
CC / HPI / ROS
-
Chief Complaint:
hyponatremia
History of Present Illness:
Na up to 134 with 3%
BP stable on pressors
on Abx for UTI
nonoliguric
critically ill in ICU
Review of Systems:
now awake and answering questions
no CP/SOB
Labs
-
Labs:
WBC 10.9 10^3/uL (4.8-10.8) H 06/02/24 06:01
RBC 3.52 10^6/uL (4.70-6.10) L 06/02/24 06:01
Hgb 10.4 g/dL (13.0-18.0) L 06/02/24 06:01
Hct 30.0 % (39.0-52.0) L 06/02/24 06:01
Plt Count 179 10^3/uL (130-400) D 06/02/24 06:01
eGFR > 60.00 06/02/24 07:19
Phosphorus 3.4 mg/dl (2.5-4.5) 06/01/24 22:12
Albumin 2.6 g/dl (3.5-5.0) L 06/01/24 17:15
Physical Exam
-
Vital Signs:
Vital Signs
Temp Pulse Resp BP Pulse Ox
101.0 F H 70 9 136/75 95
06/02/24 07:30 06/02/24 06:00 06/02/24 06:00 06/02/24 06:00 06/02/24 06:00
Cardiovascular:: Regular rate and rhythm
Respiratory:: Bilateral: Coarse
Lung Excursion:: Normal
Abdomen:: Nontender and Soft
Bowel Sounds:: Normal
Extremity Edema:: None: Bilateral:
--- NOTE | 2024-06-02 09:22 | W.PN.HOSP.TC ---
Today's Communication/Plan
-
continue Cipro. Stop cefepime.
Continue with IV fluids
Change Velez catheter
Speech to evaluate and start on a diet
Transfer to telemetry if remains stable hemodynamically.
Assessment / Plan
Assessment / Plan
1. Unresponsive - Patient with h/o orthostatic hypotension and recurrent syncope presents with unresponsiveness now lasting several hours. Maintains airways and breathing for now. Hypotensive on arrival in ED. Suspect toxic metabolic possibly
secondary to infection, electrolytes and or medications. Protecting airway but uncertain of acute respiratory acidosis may be contributing.
- decreased responsiveness in the setting of septic shock and hyponatremia. Doubt that is the case. No witnessed seizure activity. No evidence of acute intracranial abnormality on the CT scan. No hypercapnia.
- hold baclofen and tizanidine for now
-Follow clinically for any further recurrence.
2. Sepsis With shock- off of vasopressors now. H/O Serratia bacteremia with likely urinary source. Negative lactic acid.
- suspected source urine
- continue with ciprofloxacin and hold cefepime based on prior sensitivities.
- continue with IV fluids for now.
- ID consult pending
- Adequate cortisol levels-wean steroids
- patient on fludrocortisone which she will resume.
3. Hyponatremia - Na 122, Recurrent.
- improved with hypertonic solution.
- Nephrology following.
-
4. Chronic indwelling Velez catheter-change Velez catheter today because of concern UTI. advised to find a new urologist as the patient has not seen any in the last 2 years. Advised to discuss about suprapubic catheter. This is the
second admission with sepsis into the hospital from UTI from catheter.
DVT PPX - lovenox sq
GI PPX - famotidine iv daily
Code Status - Full Code for now
Discussed with RN and remediation project engineer
Total time spent on today's encounter was 52 minutes which included time spent in counseling the patient/family regarding diagnosis and treatment plan as listed above, goals of care, and symptom management. Case was discussed with nursing staff,
specialists,. All labs and imaging personally reviewed by me. Remainder the time spent in detailed review of previous records, lab data, imaging, and other medical provider documentation.
Anticipated Discharge: 24 - 48 hours
Subjective/Interval History
-
Date of Service: June 02, 2024
Patient is alert and oriented to self and person. He knows he is in the hospital but cannot name the hospital.
There is an improvement from yesterday according to his nurse aide.
According to the nurses aide patient started to spike fevers since Thursday. When he gets a fever he has change in mental status. He was having episodes of decreased responsiveness intermittently but yesterday he really became sicker with decreased
responsiveness for few hours. No was witnessed seizure-like activity.
According to the catheter has been there for 9 years. Gets changed every 3 weeks. Last change was a week ago. They lost their urologist as he got retired and has not seen a urologist in the last 2 years.
Objective Data
-
Labs:
Laboratory Results
06/01/24 06/02/24 06/02/24
22:12 02:04 02:04
WBC
Hgb
Hct
Plt Count
PT 17.7 H
INR 1.45
APTT 40.8 H
Sodium 132 L D Cancelled
Potassium 4.1
Chloride
Carbon Dioxide
BUN
Creatinine
Glucose
Calcium
06/02/24 06/02/24 06/02/24
02:04 02:04 02:04
WBC
Hgb
Hct
Plt Count
PT
INR
APTT
Sodium
Potassium Cancelled
Chloride 101 Cancelled
Carbon Dioxide 26 Cancelled
BUN 15
Creatinine
Glucose
Calcium
06/02/24 06/02/24 06/02/24
02:04 02:04 02:04
WBC
Hgb
Hct
Plt Count
PT
INR
APTT
Sodium
Potassium
Chloride
Carbon Dioxide
BUN Cancelled
Creatinine 0.6 L Cancelled
Glucose 102 H Cancelled
Calcium 8.4
06/02/24 06/02/24 06/02/24
02:04 06:01 07:19
WBC 10.9 H
Hgb 10.4 L
Hct 30.0 L
Plt Count 179 D
PT
INR
APTT
Sodium Cancelled 134 L
Potassium Cancelled 4.2
Chloride Cancelled 102
Carbon Dioxide Cancelled 28
BUN Cancelled 13
Creatinine Cancelled 0.5 L
Glucose Cancelled 109 H
Calcium Cancelled Cancelled 8.4
06/02/24 06/02/24 06/02/24
10:00 14:00 18:00
WBC
Hgb
Hct
Plt Count
PT
INR
APTT
Sodium Pending Pending Pending
Potassium Pending Pending Pending
Chloride Pending Pending Pending
Carbon Dioxide Pending Pending Pending
BUN Pending Pending Pending
Creatinine Pending Pending Pending
Glucose Pending Pending Pending
Calcium Pending Pending Pending
06/02/24
22:00
WBC
Hgb
Hct
Plt Count
PT
INR
APTT
Sodium Pending
Potassium Pending
Chloride Pending
Carbon Dioxide Pending
BUN Pending
Creatinine Pending
Glucose Pending
Calcium Pending
Vital Signs:
Vital Signs
Temp Pulse Resp BP Pulse Ox
101.0 F H 70 9 136/75 95
06/02/24 07:30 06/02/24 06:00 06/02/24 06:00 06/02/24 06:00 06/02/24 06:00
I&O
06/01/24 06/02/24 06/03/24
06:59 06:59 06:59
Intake Total 90 / 90 0 / 0
Output Total 2975 / 2975
Balance -2885 / -2885 0 / 0
Review of Systems
-
Unable to obtain full review of systems at this time due to: Other ( Cognitively)
Constitutional: Denies Fever or Chills
Respiratory: Denies Trouble Breathing
Cardiac: Denies Chest Pain
Abdomen/GI: Denies Abdominal Pain, Nausea, Vomiting or Diarrhea
Neuro: Denies Dizzy or Headache
Physical Exam
-
General: Comfortable
HEENT: Moist Mucous Membranes
Respiratory: Clear to Auscultation ( anterior)
Cardiac: Regular Rhythm and S1/S2; Negative Tachycardic
GI: Soft, Nontender, Nondistended and Normal Bowel Sounds
Neuro: Awake, Alert and Oriented; Negative No Motor Deficits ( spastic left side with weakness;also increased spasticity in the right side; more strength 4/5 in the R upper extremity;)
Psych: Calm
Data Reviewed
-
Labs: Labs Reviewed by me
[2024-06-02] MEDS: TYLENOL/FEVERALL 650 MG RECTAL (10:16)
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
--- NOTE | 2024-06-02 10:30 | PTCARENOTE ---
Pt admitted w/ chronic leong...per MD order, old leong removed and new 16fr leong inserted without issue.
[2024-06-02] MEDS: SOLU-CORTEF 25 MG IV ×3 (11:17→23:57)
[2024-06-02] MEDS: NEURONTIN 100 MG PO ×2 (11:17→15:02)
[2024-06-02] MEDS: FLORINEF 0.05 MG PO ×2 (11:17→14:45)
--- NOTE | 2024-06-02 11:19 | PTOTSP ---
Dysphagia Evaluation
Patient has acute on chronic risk factors for dysphagia (i.e., suspected urosepsis; incomplete C1-C4 injury with spastic quadriplegia and reduced cough strength) and currently presents with signs concerning for possible signs of esophageal dysphagia.
Recommend:
1. Regular (cut into bite sized pieces), Thin Liquids
2. Medications - as best tolerated
3. Strategies: upright to 90 degrees, full supervision and assistance, slow rate, remain upright for at least 30 minutes after PO intake
4. Oral care 3x daily
5. Dysphagia therapy follow up at the acute care level for instruction in precautions and to determine if further swallowing assessment warranted. Consider GI consult if signs concerning for esophageal dysphagia persist.
--- NOTE | 2024-06-02 11:36 | W.PN.UPDATE ---
Update Note
Progress Note Update
Mental status back to baseline
Slightly hypertensive
Passed speech evaluation
Sodium has improved
Will transfer to telemetry.
Critical care team will sign off
--- NOTE | 2024-06-02 11:45 | PTCARENOTE ---
Tx to tele when bed available.
--- NOTE | 2024-06-02 12:45 | CM ---
CM following re: discharge planning.
Reviewed pt's chart, met with pt and pt's caregiver at bedside. Per Rounds meeting, mental status at baseline and pt will be downgraded from ICU level of care.
Pt is a 73 year old male, admitted with primary dx of Altered mental status secondary to severe hyponatremia
Septic shock: Urinary tract infection-recurrent.
Pt rapports he lives alone in an independent apartment at [facility] has 2 supportive children, spouse lives at [facility] [place] different apartment. Pt reports he is bedbound, has 24/7caregiver services, has a hospital bed, [facility], known to
[facility]. pt expressed his desire to return back to his living arrangements at [facility]. Pt's caregiver stated he will transport pt back home at discharge, pt has w/c accessible van.
PCP: Matilde Dexter
Pharmacy: [facility]
D/C plan: home with resumptions of 24/7 caregiver services and family support. VN with [facility] if recommended.
CM will follow with discharge plan updates as hospitalization progresses
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
--- NOTE | 2024-06-02 14:32 | PTCARENOTE ---
Report called to [facility] on . Pt to transfer to Room 2123. Belongings sent w/ pt.
[2024-06-02] MEDS: LIORESAL 30 MG PO ×2 (15:02→20:22)
[2024-06-02] MEDS: LOVENOX 40 MG SC (17:27)
[2024-06-02] MEDS: MAGNESIUM OXIDE 500 MG PO (20:17)
[2024-06-02] MEDS: ZANAFLEX 1 MG PO (20:17)
[2024-06-02] MEDS: STERILE WATER FOR INJECTION IV (20:22)
[2024-06-03] VITALS (9 sets, daily range): BP systolic 96–160; BP diastolic 46–101
[2024-06-03] MEDS: SOLU-CORTEF 25 MG IV (06:11)
[2024-06-03 07:27] LABS: Hematocrit 33.2 % (39.0-52.0); Hemoglobin 11.7 g/dL (13.0-18.0); Mean Corp Hgb Conc. 35.2 g/dL (33.0-37.0); Mean Corpuscular Hgb 30.5 pg (27.0-31.0); Mean Corpuscular Volume 86.5 fL (80.0-94.0); Mean Platelet Volume 10.5 fL (7.4-10.4); Platelet Count 204 10^3/uL (130-400); Red Blood Cell Count 3.84 10^6/uL (4.70-6.10); Red Cell Dist. Width 14.9 % (11.5-14.5); White Blood Cell Count 7.2 10^3/uL (4.8-10.8)
[2024-06-03] MEDS: CIPRO 400 MG 200 IV ×2 (08:21→20:52)
[2024-06-03] MEDS: NEURONTIN 100 MG PO ×3 (08:22→17:18)
[2024-06-03] MEDS: ZANAFLEX 1 MG PO ×2 (08:22→20:55)
[2024-06-03] MEDS: MAGNESIUM OXIDE 500 MG PO ×2 (08:22→20:55)
[2024-06-03] MEDS: STERILE WATER FOR INJECTION IV ×2 (08:23→20:56)
[2024-06-03] MEDS: LIORESAL 30 MG PO ×4 (08:24→20:57)
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
--- NOTE | 2024-06-03 09:42 | PTCARENOTE ---
Dr. Irene made aware of patient's BP .
[2024-06-03] MEDS: FLORINEF 0.05 MG PO ×2 (10:39→14:30)
--- NOTE | 2024-06-03 10:45 | W.PN.HOSP.TC ---
Today's Communication/Plan
-
DC IV steroids
CW ABX
DC planning
Assessment / Plan
Assessment / Plan
1. Unresponsive - Patient with h/o orthostatic hypotension and recurrent syncope presents with unresponsiveness now lasting several hours. Maintains airways and breathing for now. Hypotensive on arrival in ED. Suspect toxic metabolic possibly
secondary to infection, electrolytes and or medications.
- decreased responsiveness in the setting of septic shock and hyponatremia. No witnessed seizure activity. No evidence of acute intracranial abnormality on the CT scan. No hypercapnia.
- Resolved.
2. Sepsis With shock- off of vasopressors now. H/O Serratia bacteremia with likely urinary source. Negative lactic acid.
- suspected source urine
- continue with ciprofloxacin based on prior sensitivities.
- Off IV fluids
- ID following
- Adequate cortisol levels-DC further steroids.
- patient on fludrocortisone which was resumed.
3. Hyponatremia - Na 122, Recurrent.
- improved with hypertonic solution.
- Nephrology following.
4. Chronic indwelling Velez catheter-change Velez catheter today because of concern UTI. advised to find a new urologist as the patient has not seen any in the last 2 years. Advised to discuss about suprapubic catheter. This is the
second admission with sepsis into the hospital from UTI from catheter.
5. Elevated BP noted -not a known HTN and not on meds. Was hypotensive on adx. DC IV steroids and follow on prn hydralazine for now.
6. 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
DVT PPX - lovenox sq
GI PPX - famotidine iv daily
Code Status - Full Code for now
Discussed with RN
DC when ok from ID standpoint
Anticipated Discharge: 24 - 48 hours
Subjective/Interval History
-
Date of Service: June 03, 2024
Pt is much more alert and interactive.
His regular nurse aide at bedside working on his PT in bed. He finds him at his baseline.
Objective Data
-
Labs:
Laboratory Results
06/03/24
06:32
WBC 7.2
Hgb 11.7 L
Hct 33.2 L
Plt Count 204
Vital Signs:
Vital Signs
Temp Pulse Resp BP Pulse Ox
97.8 F 75 18 160/80 96
06/03/24 07:05 06/03/24 07:05 06/03/24 07:05 06/03/24 08:20 06/03/24 07:05
I&O
06/02/24 06/03/24 06/04/24
06:59 06:59 06:59
Intake Total 90 / 90 720 / 720
Output Total 2975 / 2975 5100 / 5100
Balance -2885 / -2885 -4380 / -4380
Review of Systems
-
Constitutional: Denies Fever
Respiratory: Denies Trouble Breathing
Cardiac: Denies Chest Pain
Abdomen/GI: Denies Nausea or Vomiting
Neuro: Denies Dizzy
Physical Exam
-
General: No Apparent Distress
HEENT: Moist Mucous Membranes
Respiratory: Non Labored Respirations; Negative Accessory Resp Muscle Use
Cardiac: Regular Rhythm and S1/S2
GI: Soft and Nontender
Neuro: Awake, Alert and Oriented; Negative No Motor Deficits (as yesterday)
Psych: Calm
Data Reviewed
-
Labs: Labs Reviewed by me
--- NOTE | 2024-06-03 13:55 | CM ---
Quad due to spinal cord injury, UTI, chronic leong, IV/AB. Resident of [facility] in [place] with 08/06 caregivers. Discharge Plan of Care: Return to apartment at [facility].
--- NOTE | 2024-06-03 16:26 | W.PN.NEPH.PH ---
Today's Communication / Plan
-
- BMP
Assessment/Plan
-
Impression:
Probable urosepsis
UTI
Hyponatremia: acute on chronic (122 on presentation), chronic salt tablets
Chronic labile hypotension on fludrocortisone
History of quadriplegic with cervical neck injury
History of left partial nephrectomy for renal cell carcinoma
Chronic sacral wound
Chronic Velez catheter
Plan:
follow BMP (none ordered today, will obtain this evening and tomorrow AM). if Na stable, we will sign off
off pressors
return to florinef/NaCl tabs
speech eval, restart po intake
no fluids today
-
-
Date of Service: June 03, 2024
CC / HPI / ROS
-
Chief Complaint:
hyponatremia
History of Present Illness:
Na up to 134 with 3%
BP stable on pressors
on Abx for UTI
nonoliguric
critically ill in ICU
Review of Systems:
now awake and answering questions
no CP/SOB
Labs
-
Labs:
WBC 7.2 10^3/uL (4.8-10.8) 06/03/24 06:32
RBC 3.84 10^6/uL (4.70-6.10) L 06/03/24 06:32
Hgb 11.7 g/dL (13.0-18.0) L 06/03/24 06:32
Hct 33.2 % (39.0-52.0) L 06/03/24 06:32
Plt Count 204 10^3/uL (130-400) 06/03/24 06:32
eGFR Cancelled 06/02/24 22:00
Phosphorus 3.4 mg/dl (2.5-4.5) 06/01/24 22:12
Albumin 2.6 g/dl (3.5-5.0) L 06/01/24 17:15
Physical Exam
-
Vital Signs:
Vital Signs
Temp Pulse Resp BP Pulse Ox
98.2 F 92 18 156/98 98
06/03/24 15:05 06/03/24 15:05 06/03/24 15:05 06/03/24 15:05 06/03/24 15:05
Cardiovascular:: Regular rate and rhythm
Respiratory:: Bilateral: Coarse
Lung Excursion:: Normal
Abdomen:: Nontender and Soft
Bowel Sounds:: Normal
Extremity Edema:: None: Bilateral:
Velez Catheter: Yes
[2024-06-03 17:05] LABS: Blood Urea Nitrogen 13 mg/dl (9-20); Calcium 8.7 mg/dl (8.4-10.2); Carbon Dioxide 33 mmol/L (22-30); Chloride 97 mmol/L (98-107); Estimated Creatinine Clearance 111 ml/min; Glucose 89 mg/dl (70-99); Potassium 3.6 mmol/L (3.5-5.1); Sodium 135 mmol/L (135-145); eGFR > 60.00
[2024-06-03] MEDS: LOVENOX 40 MG SC (17:18)
[2024-06-03] MEDS: FLUSH (NSS) 2 FLUSH IV (20:58)
--- NOTE | 2024-06-03 23:42 | PTCARENOTE ---
Patient having pauses and bradycardia. Patient unaware and just feels tired. Advised LOPEZ Cochran.
[2024-06-04] VITALS (8 sets, daily range): BP systolic 80–165; BP diastolic 44–110
[2024-06-04 00:05] LABS: Glucose - Point of Care 114 mg/dl (70-99)
[2024-06-04] MEDS: NSS 500 IV (00:05)
[2024-06-04 00:14] LABS: Hematocrit 29.5 % (39.0-52.0); Hemoglobin 10.2 g/dL (13.0-18.0); Mean Corp Hgb Conc. 34.6 g/dL (33.0-37.0); Mean Corpuscular Hgb 29.3 pg (27.0-31.0); Mean Corpuscular Volume 84.8 fL (80.0-94.0); Mean Platelet Volume 10.1 fL (7.4-10.4); Platelet Count 213 10^3/uL (130-400); Red Blood Cell Count 3.48 10^6/uL (4.70-6.10); Red Cell Dist. Width 14.9 % (11.5-14.5); White Blood Cell Count 6.8 10^3/uL (4.8-10.8)
[2024-06-04 00:25] LABS: Lactic Acid 1.3 mmol/L (0.7-2.0)
--- NOTE | 2024-06-04 00:30 | PTCARENOTE ---
Patient was ordered an EKG, 500cc bolus, glucose check and diagnostic lab draws.
[2024-06-04 00:33] LABS: Blood Urea Nitrogen 16 mg/dl (9-20); Calcium 8.7 mg/dl (8.4-10.2); Carbon Dioxide 31 mmol/L (22-30); Chloride 98 mmol/L (98-107); Estimated Creatinine Clearance 111 ml/min; Glucose 107 mg/dl (70-99); Potassium 3.6 mmol/L (3.5-5.1); Sodium 134 mmol/L (135-145); eGFR > 60.00
[2024-06-04] MEDS: NSS 1000 IV ×2 (01:09→15:04)
--- NOTE | 2024-06-04 01:10 | W.PN.UPDATE ---
Update Note
Progress Note Update
RN notified BLOCK SEALER patient is having pauses and longest is 3 second, HR went down to 20's. Patient seen and evaluated. stated feeling 'dizzy', denies chest pain, Shortness of breath. No hx of Bradycardia or any heart condition, does not see outpatient
Dam Worker per patient. Reported had no appetite today and didn't drink or eat much as usual. Denies sleep apnea and is not on any sedative medications. BP was 97.6, 96/46 dropped to 84/44 HR 40's- 50's Afib on the monitor, 114. IV bolus of NSS
500 cc ordered. zoll pads placed, labs ordered, EKG Afib with slow ventricular response. Consult for Dam Worker in place.
one hour later 117/67 HR 66 16 97.8 95% RA, Patient reported feeling better. If continuos to be symptomatic, will plan to transfer to ICU.
[2024-06-04 07:57] LABS: Blood Urea Nitrogen 13 mg/dl (9-20); Calcium 8.7 mg/dl (8.4-10.2); Carbon Dioxide 31 mmol/L (22-30); Chloride 100 mmol/L (98-107); Estimated Creatinine Clearance 111 ml/min; Glucose 92 mg/dl (70-99); Potassium 3.8 mmol/L (3.5-5.1); Sodium 137 mmol/L (135-145); eGFR > 60.00
[2024-06-04] MEDS: CIPRO 400 MG 200 IV ×2 (09:18→20:13)
[2024-06-04] MEDS: MAGNESIUM OXIDE 500 MG PO ×2 (09:19→20:15)
[2024-06-04] MEDS: ZANAFLEX 1 MG PO ×2 (09:19→20:15)
[2024-06-04] MEDS: NEURONTIN 100 MG PO ×3 (09:19→16:23)
[2024-06-04] MEDS: STERILE WATER FOR INJECTION IV ×2 (09:20→20:15)
[2024-06-04] MEDS: LIORESAL 30 MG PO ×4 (09:22→20:18)
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
[2024-06-04] MEDS: ELIQUIS 5 MG PO ×2 (10:19→20:14)
[2024-06-04] MEDS: FLORINEF 0.05 MG PO ×2 (11:23→15:04)
--- NOTE | 2024-06-04 12:43 | W.PN.UPDATE ---
Update Note
Progress Note Update
- Na normalized
- we will sign off
--- NOTE | 2024-06-04 12:50 | W.PN.HOSP.TC ---
Today's Communication/Plan
-
2d echo
monitor on tele
start eliquis
cards consult
Assessment / Plan
Assessment / Plan
1. Unresponsive - Patient with h/o orthostatic hypotension and recurrent syncope presents with unresponsiveness now lasting several hours. Maintains airways and breathing for now. Hypotensive on arrival in ED. Suspect toxic metabolic possibly
secondary to infection, electrolytes and or medications.
- decreased responsiveness in the setting of septic shock and hyponatremia. No witnessed seizure activity. No evidence of acute intracranial abnormality on the CT scan. No hypercapnia.
- Resolved.
2. Sepsis With shock- off of vasopressors now. H/O Serratia bacteremia with likely urinary source. Negative lactic acid.
- suspected source urine
- continue with ciprofloxacin based on prior sensitivities.
- Off IV fluids
- ID following
- Adequate cortisol levels-DC further steroids.
- patient on fludrocortisone which was resumed.
3. Hyponatremia - Na 122, Recurrent.
- improved with hypertonic solution.
- Nephrology following.
4. Chronic indwelling Velez catheter-change Velez catheter today because of concern UTI. advised to find a new urologist as the patient has not seen any in the last 2 years. Advised to discuss about suprapubic catheter. This is the
second admission with sepsis into the hospital from UTI from catheter.
5. Elevated BP noted -not a known HTN and not on meds. Was hypotensive on adx. DC IV steroids and follow on prn hydralazine for now.
6. 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
7. Afib with slow ventricular response c/b dizziness
Bradycardia with sinus pause vs autonamic dysfunction
monitor on tele
avoid av luiz agents
cards consulted
2d echo ordered
may need ppm, if only happening nocturnily then may need sleep study
DVT PPX - lovenox sq
GI PPX - famotidine iv daily
Code Status - Full Code for now
Discussed with RN
DC when ok from ID standpoint
Anticipated Discharge: 24 - 48 hours
Subjective/Interval History
-
Date of Service: June 04, 2024
seen and examined
no new complaints.
no acute overnigt events
overnight he felt dizzy, noted to habe sinus pauses and shiv down the the 20's
Objective Data
-
Labs:
Laboratory Results
06/04/24
06:59
Sodium 137
Potassium 3.8
Chloride 100
Carbon Dioxide 31 H
BUN 13
Creatinine 0.5 L
Glucose 92
Calcium 8.7
Vital Signs:
Vital Signs
Temp Pulse Resp BP Pulse Ox
97.9 F 89 16 132/86 98
06/04/24 11:00 06/04/24 11:00 06/04/24 11:00 06/04/24 11:00 06/04/24 11:00
I&O
06/03/24 06/04/24 06/05/24
06:59 06:59 06:59
Intake Total 720 / 720 1810 / 1810
Output Total 5100 / 5100 2100 / 2100
Balance -4380 / -4380 -290 / -290
--- NOTE | 2024-06-04 16:45 | PTCARENOTE ---
Patient bp 165/110, he:101 noted. ( [facility]) New order to d/c current iv fluids noted and verified. order in place. plan of care ongoing.
[2024-06-05 03:31] VITALS: BP 131/83
[2024-06-05 07:43] VITALS: BP 149/100
[2024-06-05 07:44] VITALS: BP 161/108
[2024-06-05] MEDS: CIPRO 400 MG 200 IV (08:27)
[2024-06-05] MEDS: ELIQUIS 5 MG PO ×2 (08:27→20:18)
[2024-06-05] MEDS: NEURONTIN 100 MG PO ×3 (08:27→16:46)
[2024-06-05] MEDS: ZANAFLEX 1 MG PO ×2 (08:27→20:18)
[2024-06-05] MEDS: STERILE WATER FOR INJECTION IV ×2 (08:28→20:19)
[2024-06-05] MEDS: MAGNESIUM OXIDE 500 MG PO ×2 (08:28→20:17)
[2024-06-05] MEDS: LIORESAL 30 MG PO ×4 (08:29→20:21)
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
[2024-06-05] MEDS: FLORINEF 0.05 MG PO ×2 (10:50→14:12)
--- NOTE | 2024-06-05 11:14 | W.PN.HOSP.TC ---
Today's Communication/Plan
-
Due to the SB and dizziness along with pauses will need to r/o cardiac etiology, 2d echo pending, cards following and tele monitor
Assessment / Plan
Assessment / Plan
Afib with slow ventricular response c/b dizziness
Bradycardia with sinus pause vs autonamic dysfunction
monitor on tele
avoid av luiz agents
cards consulted
2d echo ordered
may need ppm, if only happening nocturnily then may need sleep study
Unresponsive - Patient with h/o orthostatic hypotension and recurrent syncope presents with unresponsiveness now lasting several hours. Maintains airways and breathing for now. Hypotensive on arrival in ED. Suspect toxic metabolic possibly
secondary to infection, electrolytes and or medications.
- decreased responsiveness in the setting of septic shock and hyponatremia. No witnessed seizure activity. No evidence of acute intracranial abnormality on the CT scan. No hypercapnia.
- Resolved.
Sepsis with shock- off of vasopressors now. H/O Serratia bacteremia with likely urinary source. Negative lactic acid.
- suspected source urine
- continue with ciprofloxacin based on prior sensitivities.
- Off IV fluids
- ID following
- Adequate cortisol levels-DC further steroids.
- patient on fludrocortisone which was resumed.
Hyponatremia - Na 122, Recurrent.
- improved with hypertonic solution.
- Nephrology following.
Chronic indwelling Velez catheter-change Velez catheter today because of concern UTI. advised to find a new urologist as the patient has not seen any in the last 2 years. Advised to discuss about suprapubic catheter. This is the second
admission with sepsis into the hospital from UTI from catheter.
Elevated BP noted -not a known HTN and not on meds. Was hypotensive on adx. DC IV steroids and follow on prn hydralazine for now.
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
DVT PPX - lovenox sq
GI PPX - famotidine iv daily
Code Status - Full Code for now
Discussed with RN
DC when ok from ID standpoint
D
Anticipated Discharge: 24 - 48 hours
Subjective/Interval History
-
Date of Service: June 05, 2024
seen and examined
no further experiences of dizziness
care attendant at bedside will help him to have a bm by manualy disimpacting him with assistance of nursing
Objective Data
-
Vital Signs:
Vital Signs
Temp Pulse Resp BP Pulse Ox
97.7 F 90 18 161/108 99
06/05/24 07:43 06/05/24 07:44 06/05/24 07:43 06/05/24 07:44 06/05/24 07:43
I&O
06/04/24 06/05/24 06/06/24
06:59 06:59 06:59
Intake Total 1810 / 1810 1020 / 1020
Output Total 2100 / 2100 2875 / 2875
Balance -290 / -290 -1855 / -1855
[2024-06-05 12:29] VITALS: BP 110/70
--- NOTE | 2024-06-05 13:20 | CM ---
CM met with pt and sig other (ex-) at bedside.
Confirmed [place] is from [place] at [facility] with 08/06 caregivers. Offered VN for pt. Pt declines at this time.
Pt is not yet stable for dc. CM to follow and assist.
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
[2024-06-05 19:39] VITALS: BP 139/93
[2024-06-05] MEDS: CIPRO 500 MG PO (22:25)
[2024-06-05 22:34] VITALS: BP 148/92
[2024-06-06 03:24] VITALS: BP 133/69
[2024-06-06 06:21] LABS: Blood Urea Nitrogen 17 mg/dl (9-20); Calcium 8.5 mg/dl (8.4-10.2); Carbon Dioxide 30 mmol/L (22-30); Chloride 96 mmol/L (98-107); Estimated Creatinine Clearance 111 ml/min; Glucose 77 mg/dl (70-99); Potassium 3.9 mmol/L (3.5-5.1); Sodium 135 mmol/L (135-145); eGFR > 60.00
[2024-06-06 06:46] LABS: Hematocrit 36.5 % (39.0-52.0); Hemoglobin 12.7 g/dL (13.0-18.0); Mean Corp Hgb Conc. 34.8 g/dL (33.0-37.0); Mean Corpuscular Hgb 30.7 pg (27.0-31.0); Mean Corpuscular Volume 88.2 fL (80.0-94.0); Mean Platelet Volume 10.1 fL (7.4-10.4); Platelet Count 282 10^3/uL (130-400); Red Blood Cell Count 4.14 10^6/uL (4.70-6.10); Red Cell Dist. Width 14.7 % (11.5-14.5); White Blood Cell Count 15.6 10^3/uL (4.8-10.8)
[2024-06-06 07:05] VITALS: BP 168/93
[2024-06-06] MEDS: CIPRO 500 MG PO (09:01)
[2024-06-06] MEDS: ZANAFLEX 1 MG PO (09:01)
[2024-06-06] MEDS: NEURONTIN 100 MG PO ×2 (09:01→13:34)
[2024-06-06] MEDS: ELIQUIS 5 MG PO (09:02)
[2024-06-06] MEDS: LIORESAL 30 MG PO ×2 (09:03→13:34)
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
[2024-06-06] MEDS: FLORINEF 0.05 MG PO (10:12)
[2024-06-06] MEDS: MAGNESIUM OXIDE 500 MG PO (10:12)
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
[2024-06-06 11:17] LABS: % Basophils 0.2 % (0-2); % Eosinophils 0.4 % (0-6); % Immature Granulocytes 0.7 % (0-0.5); % Lymphocytes 8.2 % (20.5-51.1); % Neutrophils 84.5 % (42.2-75.2); Absolute Eosinophils 0.1 10^3/uL (0-0.7); Absolute Immature Granulocytes 0.1 10^3/uL (0-0.05); Absolute Lymphocytes 1.1 10^3/uL (1.2-3.4); Absolute Monocytes 0.8 10^3/uL (0.1-0.6); Absolute Neutrophils 11.8 10^3/uL (1.4-6.5); Hematocrit 34.4 % (39.0-52.0); Hemoglobin 11.8 g/dL (13.0-18.0); Mean Corp Hgb Conc. 34.3 g/dL (33.0-37.0); Mean Corpuscular Hgb 29.6 pg (27.0-31.0); Mean Corpuscular Volume 86.4 fL (80.0-94.0); Mean Platelet Volume 9.3 fL (7.4-10.4); Nucleated Red Blood Cells % 0 % (-); Platelet Count 293 10^3/uL (130-400); Red Blood Cell Count 3.98 10^6/uL (4.70-6.10); Red Cell Dist. Width 14.8 % (11.5-14.5); White Blood Cell Count 13.9 10^3/uL (4.8-10.8)
--- NOTE | 2024-06-06 11:22 | PTCARENOTE ---
pt for echo today via stretcher. pt caregiver at bedside. pt takes pills whole, one at a time with applesauce.
--- NOTE | 2024-06-06 13:01 | W.DCSUMMARY ---
Discharge Summary
Discharge Data
Date of Admission: 06/01/24
Date of Discharge: 06/06/24
-
Pending Results: No
Hospital Course
73yo M with PMHX of spastic quadriplegia, bedbound, chronic indwelling Velez, HTN, Hx of hyponatremia, Afib admitted with unresponsiveness, found in sepsis with bacteremia 2/2 UTI, Ucx grew Pseudomonas. Improved on Cipro as advised by ID. [place]
episode of asymptomatic bradycardia most likely 2/2 autonomic dysregulation and Echo showed no significant valvular disease. No additional episodes on Telemetry for bradycardia. Velez was replaced. Patient was not seen by Urologist for 2 years, so
recommended to follow up with them upon d/c. Hyponatremia resolved. Tizanidine recomended to be held until last dose of Cipro (2/2 interaction). Patient is medically stable and agreeable for d/c to [facility]. I have spent at lest 36min
preparing discharge
Patient was managed for:
#Sepsis 2/2 CAUTI
#Bacteremia
#Bradycardia
#Autonomic dysfunction
#Hyponatremia
#Chronic urinary retention with chronic Velez
#Spastic quadriplegia
Discharge Plan
-
Patient Disposition: Other
Discharge Diagnosis/Procedures: Independent Living in [facility]
Diet: Regular
Activity: As tolerated
Driving Restrictions: As prior to admission
Referrals:
Jaren Jacobson MD [Active] - in two weeks
Matilde Dexter MD [Family Provider] - in one week (Repeat CMP for Sodium level)
Prescriptions:
New
baclofen 10 mg Tablet
30 mg PO QID@0800,1200,1600,2000 30 Days Qty: 0 0RF
apixaban 5 mg Tablet
5 mg PO BID 30 Days Qty: 60 0RF
ciprofloxacin HCl 500 mg Tablet
500 mg PO BID 2 Days Qty: 4 0RF
Continued
tizanidine 2 MG tablet
2 mg PO BID@0800,1600
tolterodine 4 MG capsule,extended release 24hr
4 mg PO HS
baclofen 10 MG tablet
30 mg PO QID@08,12,16,20
gabapentin 100 MG capsule
100 mg PO TID@0800,1200,1600
famotidine 20 MG tablet
20 mg PO DAILY
fludrocortisone 0.1 MG tablet
0.05 mg PO BID@1030,1430
tizanidine 2 mg tablet
4 mg PO BID@1200,2000
Theragen Tablet
1 tab PO DAILY
magnesium oxide 500 mg magnesium Tablet
500 mg PO BID
cholecalciferol (vitamin D3) 50 mcg (2,000 unit) Tablet
50 mcg PO DAILY
omega 2-rfo-fly-fish oil [Fish Oil] 1,000 mg (120 mg-180 mg) Capsule
1 cap PO BID
cranberry
4,200 mg PO DAILY
lidocaine 5 % gel
30 ml Q48H
Discharge Orders:
Discharge Patient (As Directed); Ordered 06/06/24
Ordered By: Armin Perez
Discharge Date and Time
Print Language: ITALIAN
[2024-06-06 13:03] VITALS: BP 129/78
--- NOTE | 2024-06-06 13:58 | CM ---
Patient has been medically cleared for discharge to [facility] with scripts for PT/OT to be performed at [facility]. and Classroom Paraprofessional are with patient and will transport him to his home.
== END 2024-06-06 14:27 | disposition home or self-care (01) | DRG 698 ==
LOC: 2 NORTH 21:02
PROVIDERS: Hospitalist; Internal Medicine; Nurse Practitioner Family; Nurse Practitioner Gerontology; Student in an Organized Health Care Education/Training Program; ADMITTING PHYSICIAN Internal Medicine; ATTENDING PHYSICIAN Internal Medicine; CONSULT PHYSICIAN Internal Medicine; EMERGENCY PHYSICIAN Emergency Medicine; FAMILY PHYSICIAN Internal Medicine Geriatric Medicine; OTHER PHYSICIAN Internal Medicine Critical Care Medicine; OTHER PHYSICIAN Internal Medicine Infectious Disease; OTHER PHYSICIAN Specialist
DX: T83.518A Infection and inflammatory reaction due to other urinary catheter, initial encounter (principal); A41.9 Sepsis, unspecified organism; G82.50 Quadriplegia, unspecified; R65.21 Severe sepsis with septic shock; E87.1 Hypo-osmolality and hyponatremia; N39.0 Urinary tract infection, site not specified; Y84.6 Urinary catheterization as the cause of abnormal reaction of the patient, or of later complication, without mention of misadventure at the time of the procedure; G90.9 Disorder of the autonomic nervous system, unspecified; I10 Essential (primary) hypertension; Z79.01 Long term (current) use of anticoagulants; Z85.528 Personal history of other malignant neoplasm of kidney
CPT/HCPCS: 70450; 71045; 80048; 80053; 81003; 81015; 82533; 82805; 82962; 83605; 83735; 84100; 84484; 85025; 85027; 85610; 85730; 87040; 87070; 87077; 87086; 87186; 92610; 93005; 93306; 96361; 96365; 96375; 99291

== ENCOUNTER 2024-08-26 16:13 | Emergency (ER) | payer MEDICARE, BC, SELFPAY ==
[2024-08-26 16:20] VITALS: BP 158/98
--- NOTE | 2024-08-26 17:09 | ED.GENMED ---
Addendum entered and electronically signed by Kayla Spivey PA-C 08/27/24 11:44:
Pharmacy calling saying that they do not carry ciprofloxacin suspension. Based on chart review, it appears patient has spinal cord injury. Pharmacist reports that patient has been prescribed doses of tablets of ciprofloxacin in the past, with the
most recent being in January 2024. I did send these tablets to the pharmacy. Pharmacist reports that she will be in contact with patient's family regarding the tablets.
Original Note:
History of Present Illness
General
Chief Complaint: Male Genito-Urinary Symptoms
Time Seen by Provider: 08/26/24 16:50
History of Present Illness
History of Present Illness:
Patient is a 73-year-old male with history of spastic quadriplegia, chronic indwelling Velez, A-fib on Eliquis presenting to the emergency department with problems with his Velez catheter. It was changed yesterday without any issues. Became
dislodged during the night and this morning his fci was unable to replace it. Patient states is never happened to him before. Has never had any issues with his Velez. Per chart review he was admitted for bacteremia secondary to UTI back
in June. He denies any recent trauma.
Past History
Past History
ED Past Medical History: Other (Cervical spinal cord injury 2014) and Other (Kidney stones, orthostatic hypotension, neurogenic bladder with indwelling Velez, hyponatremia, mineralocorticoid deficiency)
Social History
Tobacco: Non-smoker
Personal:
Phy Exam
Physical Exam
Physical Exam:
GENERAL: in no acute distress
HEENT: normocephalic, extraocular movements intact, moist oral mucosa
NECK: normal inspection
RESPIRATORY: no respiratory distress, clear to auscultation bilaterally
CARDIOVASCULAR: regular rate and rhythm
ABDOMEN/: soft, non-distended, non-tender to palpation, no rebound or guarding
EXTREMITIES: non-tender, no edema/swelling
NEUROLOGIC: awake and alert, moves all extremities
SKIN: warm
Course
Orders/Labs/Results
Orders:
Orders
08/26/24 18:18
Cefepime HCl [Maxipime] 1,000 mg IV NOW STA
08/26/24 18:50
Urinalysis Reflex To Culture Urgent
Date Specimen was Collected: 08/26/24
Time Specimen was Collected: 18:35
Urine Microscopic Reflex Cult Urgent
Urine Culture Urgent
CARLITO Source: U
Specimen Description:
Date Specimen was Collected: 08/26/24
Time Specimen was Collected: 18:35
Abnormal Lab Results
08/26/24
18:50
Urine Ketones Trace A
(Negative)
Ur Occult Blood Reflex 4+ A
(Negative)
Leukocyte Esterase Rfl 1+ A
(Negative)
Urine RBC >100 A /HPF
(0-2)
Urine Albumin (Reflex) 3+ A
(Neg - Trace)
Vital Signs
Initial and Last Documented VS:
Initial Vital Signs
Temp Pulse Resp BP Pulse Ox
98.1 F 92 18 158/98 96
08/26/24 16:20 08/26/24 16:20 08/26/24 16:20 08/26/24 16:20 08/26/24 16:20
Last Documented Vital Signs
Temp Pulse Resp BP Pulse Ox
98.1 F 79 20 134/79 99
08/26/24 16:20 08/26/24 18:00 08/26/24 18:00 08/26/24 18:00 08/26/24 18:00
MDM/Problems Addressed
Differential Diagnosis Includes:
Patient is a 73-year-old male with history of quadriplegia, chronic indwelling Velez, A-fib on Eliquis presenting to the emergency department with problems with his Velez catheter. Nursing did attempt to replace his Velez catheter with his usual 16
Spanish. However there was resistance but they did notice blood come out from the Velez. There were clots. Once the Velez catheter was removed he did have ongoing bleeding from the urethral meatus. We then attempted three-way Velez catheter
insertion with the same issue with resistance. I did attempt to look at the bladder with the [id number] ultrasound. It is distended. I did see the tip of the Velez catheter at the base of the bladder. We did attempt to manually irrigate in
case there was a clot blocking it however we were unsuccessful. I did reach out to urology. Will pain control.
*Critical Care Note
Total Time (30-74mins, 75-104mins- exclusive of procedures): Not Applicable
Update Note
Update Note:
Urology was able to place a coud� catheter. He did hand irrigate. Urine is now pink we will monitor for at least an hour. Neurology is recommending dose of IV antibiotics. Based on prior cultures he does grow Pseudomonas will give IV cefepime.
On reevaluation urine is actively draining. It is slightly pink. No clot. Urine does have positive leuk. WBC unable to be count to secondary to the RBC. we will treat with Cipro given prior history. To return precautions given. Will
discharge at this time.
ED Attending Note
-
Portions of this chart may have been created with voice recognition software.� Occasional wrong word or��sound alike� substitutions may have occurred due to the inherent limitations of voice recognition software.
Discharge Plan
Departure
Patient Disposition: Home (Routine Discharge)
Date of Disposition: 08/26/24
Time of Disposition: 19:45
Patient with high blood pressure during this ER visit?: No
Discharge Problem:
Hematuria, Acute UTI
Prescriptions:
New
ciprofloxacin 500 mg/5 mL suspension,microcapsule recon
500 mg PO BID 7 Days Qty: 70 0RF
No Action
tizanidine 2 MG tablet
2 mg PO BID@0800,1600
tolterodine 4 MG capsule,extended release 24hr
4 mg PO HS
baclofen 10 MG tablet
30 mg PO QID@08,12,16,20
gabapentin 100 MG capsule
100 mg PO TID@0800,1200,1600
famotidine 20 MG tablet
20 mg PO DAILY
fludrocortisone 0.1 MG tablet
0.05 mg PO BID@1030,1430
tizanidine 2 mg tablet
4 mg PO BID@1200,2000
therapeutic multivitamin Tablet
1 tab PO DAILY
magnesium oxide 500 mg magnesium Tablet
500 mg PO BID
cholecalciferol (vitamin D3) 50 mcg (2,000 unit) Tablet
50 mcg PO DAILY
omega 8-lep-otd-fish oil [Fish Oil] 1,000 mg (120 mg-180 mg) Capsule
1 cap PO BID
cranberry
4,200 mg PO DAILY
lidocaine 5 % gel
30 ml Q48H
ciprofloxacin HCl 500 mg Tablet
500 mg PO BID 2 Days Qty: 4 0RF
baclofen 10 mg Tablet
30 mg PO QID@0800,1200,1600,2000 30 Days Qty: 0 0RF
apixaban 5 mg Tablet
5 mg PO BID 30 Days Qty: 60 0RF
Referrals:
NONE,* [Active] -
Interventions
Interventions:
*General Assessment Last Done: 08/26/24 18:00
*Neglect/Abuse Screening Last Done: 08/26/24 18:00
*ED COVID-19 Vaccine History Last Done: 08/26/24 18:00
ED-Male Genitourinary Assessment Last Done: 08/26/24 18:00
Discharge Date and Time
Print Language: CYPRIOT
[2024-08-26 18:00] VITALS: BP 134/79
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
[2024-08-26] MEDS: MAXIPIME 1000 MG IV (18:52)
[2024-08-26 18:56] LABS: Urine Albumin 3+ (Neg - Trace); Urine Bilirubin Negative (Negative); Urine Character Bloody (Clear); Urine Color Red; Urine Glucose Negative (Negative); Urine Ketone Trace (Negative); Urine Leukocyte 1+ (Negative); Urine Nitrite Negative (Negative); Urine Occult Blood 4+ (Negative); Urine Urobilinogen Negative (Neg - 1+)
[2024-08-26 19:13] LABS: Urine Red Blood Cell >100 /HPF (0-2)
[2024-08-26 20:00] VITALS: BP 139/73
== END 2024-08-26 20:09 | disposition home or self-care (01) ==
LOC: EMR 16:13
PROVIDERS: EMERGENCY PHYSICIAN Student in an Organized Health Care Education/Training Program
DX: R31.9 Hematuria, unspecified (principal); N39.0 Urinary tract infection, site not specified; G82.50 Quadriplegia, unspecified; I48.91 Unspecified atrial fibrillation; I95.1 Orthostatic hypotension; Z79.01 Long term (current) use of anticoagulants; Z85.528 Personal history of other malignant neoplasm of kidney; Z87.440 Personal history of urinary (tract) infections; Z87.442 Personal history of urinary calculi; Z90.5 Acquired absence of kidney
CPT/HCPCS: 99282; 51702; 96374; 81003; 81015; 87077; 87086; 87186

== ENCOUNTER 2024-12-17 09:35 | Inpatient (IN) | payer MEDICARE, BC, SELFPAY ==
[2024-12-17] VITALS (61 sets, daily range): BP systolic 45–148; BP diastolic 34–86; BMI 21.3; BMI 21.8
[2024-12-17 04:06] LABS: Hematocrit 34.2 % (39.0-52.0); Hemoglobin 11.7 g/dL (13.0-18.0); Mean Corp Hgb Conc. 34.2 g/dL (33.0-37.0); Mean Corpuscular Hgb 29.3 pg (27.0-31.0); Mean Corpuscular Volume 85.5 fL (80.0-94.0); Mean Platelet Volume 11.4 fL (7.4-10.4); Platelet Count 167 10^3/uL (130-400); Red Cell Dist. Width 15.5 % (11.5-14.5); White Blood Cell Count 14.6 10^3/uL (4.8-10.8)
[2024-12-17] MEDS: NSS 1000 IV ×3 (04:10→08:46)
[2024-12-17 04:19] LABS: ALT (SGPT) 32 U/L (0-50); AST (SGOT) 55 U/L (17-59); Alkaline Phosphatase 98 U/L (38-126); Blood Urea Nitrogen 42 mg/dl (9-20); Carbon Dioxide 25 mmol/L (22-30); Chloride 91 mmol/L (98-107); Estimated Creatinine Clearance 44 ml/min; Glucose 57 mg/dl (70-99); Potassium 5.3 mmol/L (3.5-5.1); Sodium 126 mmol/L (135-145); eGFR 48.85
[2024-12-17 04:30] LABS: Troponin I 0.017 ng/ml
[2024-12-17 04:53] LABS: Lactic Acid 1.6 mmol/L (0.7-2.0)
[2024-12-17 05:11] LABS: Absolute Neutrophils -Man Diff 13.4 10^3/uL (1.4-6.5); Band Neutrophils 42 % (0-3); Lymphocytes 2 % (20-51); Metamyelocytes 5 % (-); Monocytes 1 % (2-9); Segmented Neutrophils 50 % (42-75); Total Cells Counted 100; Toxic Granulation 1+
[2024-12-17 05:12] LABS: Anisocytosis Occasional; Basophilic Stippling Occasional; Normal RBC Morphology No; Ovalocytes Occasional; Polychromasia Occasional; Vacuolated Segs 1+
[2024-12-17 05:13] LABS: Target Cells Occasional
[2024-12-17 05:14] LABS: Platelets Checked Yes
[2024-12-17 05:53] LABS: Urine Albumin 2+ (Neg - Trace); Urine Bilirubin Negative (Negative); Urine Glucose Negative (Negative); Urine Ketone Negative (Negative); Urine Nitrite Negative (Negative); Urine Occult Blood 2+ (Negative); Urine Specific Gravity 1.015 (<1.030); Urine Urobilinogen Negative (Neg - 1+)
[2024-12-17 05:55] LABS: Urine Character Cloudy (Clear); Urine Color Yellow; Urine Leukocyte 3+ (Negative)
[2024-12-17 06:21] LABS: Urine Amorphous Seen; Urine Bacteria Many (Negative); Urine Mucus Many; Urine Squamous Cell >30 /LPF (Few); Urine White Cell >100 /HPF (0-5)
[2024-12-17 06:24] LABS: Urine Calcium Oxalate Crystals Seen
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
--- NOTE | 2024-12-17 07:15 | EDRN ---
this RN came on shift and noticed that the pts Sodium was 126, Potassium was 5.3, and BUN and Marine Engine Machinist Apprentice are elevated, this RN notified Dr. Aguirre, no new orders were received
[2024-12-17] MEDS: ZITHROMAX INFUSION 250 IV (07:32)
--- NOTE | 2024-12-17 07:38 | EDRN ---
the pt was received from the previous cage shift manager nurse Landy RN, the pt is resting in stretcher in the lowest position, side rails up x2, call knowles within reach, HOB elevated, call knowles within reach, no s/s of distress currently, per the previous
RN the pt has been hypotensive and provider Dr. Aguirre is aware of this, the pt came from home with his ex with an indwelling urinary catheter in place, per the provider this RN is not to change the catheter, awaiting for IVF Bolus
order and IV ABX order from the provider, the pt and the pts have been update on the plan of care, will continue to monitor the pt closely
[2024-12-17] MEDS: CIPRO 400 MG 200 IV (08:16)
--- NOTE | 2024-12-17 08:27 | EDRN ---
the pt is hypotensive, this RN notified Dr. Aguirre who is currently at the pts bedside
[2024-12-17] MEDS: LEVOPHED 250 IV ×2 (08:45→22:56)
--- NOTE | 2024-12-17 08:49 | EDRN ---
this RN entered the pts room and the pt had agonal breathing and Sp02 was in the 80's and the pt was unable to be stimulated, this RN placed the pt on non rebreather and notified Dr. Aguirre who came to the pts bedside, the pt is currently
still hypotensive, levophed was initiated, the pts ex is currently on the phone with the pts daughters discussing the pts code status, the charge nurse was notified and brought to the bedside to assist this RN and respiratory was notified and
brought to the bedside
--- NOTE | 2024-12-17 08:55 | EDRN ---
Dr. Aguirre currently at the pts bedside preparing to intubate
--- NOTE | 2024-12-17 09:01 | EDRN ---
Dr. Aguirre intubating
--- NOTE | 2024-12-17 09:01 | EDRN ---
Dr. Aguirre, Josué XAVIER and respiratory at the pts bedside still preparing to intubate
--- NOTE | 2024-12-17 09:01 | EDRN ---
Etomidate 15mg IV administered
--- NOTE | 2024-12-17 09:01 | EDRN ---
Roccoronium 75mg IV administered per Dr. Aguirre
--- NOTE | 2024-12-17 09:04 | EDRN ---
#8 ETT placed at 23 at the lip to the right
--- NOTE | 2024-12-17 09:06 | EDRN ---
hospitalist currently at the pts bedside
--- NOTE | 2024-12-17 09:07 | EDRN ---
portable xray currently at the pts bedside
--- NOTE | 2024-12-17 09:11 | EDRN ---
ETT advanced be Dr. Aguirre to 28cm at the lip, second cxr being performed
--- NOTE | 2024-12-17 09:15 | EDRN ---
Fi02 titrated down to 80%
--- NOTE | 2024-12-17 09:17 | EDRN ---
Dr. Houser currently at the pts bedside speaking with the pts ex
--- NOTE | 2024-12-17 09:21 | EDRN ---
RASS currently a -5 without sedation, Dr. Aguirre aware of this
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
--- NOTE | 2024-12-17 09:23 | EDRN ---
Fi02 titrated down by respiratory to 60%
[2024-12-17] MEDS: LR 1000 IV ×2 (09:31→17:33)
[2024-12-17] MEDS: MAXIPIME 1000 MG IV ×2 (09:32→21:43)
[2024-12-17] MEDS: STERILE WATER FOR INJECTION 10 ML IV ×2 (09:32→21:42)
--- NOTE | 2024-12-17 09:37 | CONS.URO ---
Consultation
-
Date/Time Consultation Requested: 12/17/2024 0853
Date/Time Consultation Performed: 12/17/2024 0922
Requesting Provider: ED
Performing Provider: Henry
Reason for Consultation: left ureteral stone; sepsis
Medical History
History of Present Illness
74 yo quadriplegic male with chronic indwelling Velez for NGB and chronic CAUTIs was brought in to ED and now in extremis due to a 4 mm proximal left ureteral stone.
Past Medical History
Past Medical History: Other (1. Quadriplegia. 2. Hyponatremia. 3. Orthostatic hypotension. 4. Autonomic dysfunction. 5. History of prior renal cell carcinoma with partial left nephrectomy and neurogenic bladder with chronic indwelling Velez's.
Catheter associated UTIs.)
Past Surgical History: Urological (left partial nephrectomy)
Social History
Unable to obtain full social history at this time due to: Patient Intubation
Personal:
Living: Assisted Living
Employment: Not Employed
Allergies/Home Medications
Allergies
Allergy/AdvReac Type Severity Reaction Status Date / Time
pollen extracts Allergy nasal Verified 08/14/23 16:34
symptoms
Home Medications
�Medication �Instructions �Recorded �Confirmed �Type
baclofen 10 mg tablet 30 mg PO QID@08,12,16,20 Muscle 10/25/20 12/17/24 History
spasms
famotidine 20 mg tablet 20 mg PO DAILY Gastrointestinal 10/25/20 12/17/24 History
issue
fludrocortisone 0.1 mg tablet 0.05 mg PO BID@1030,1430 ADRENAL 10/25/20 12/17/24 History
INSUFFIENCY
gabapentin 100 mg capsule 100 mg PO TID@0800,1200,1600 Pain 10/25/20 12/17/24 History
tizanidine 2 mg tablet 2 mg PO BID@0800,1600 Muscle Spasms 10/25/20 12/17/24 History
tolterodine 4 mg capsule,extended 4 mg PO HS Urinary issue 10/25/20 12/17/24 History
release 24 hr
tizanidine 2 mg tablet 4 mg PO BID@1200,2000 Muscle Spasms 08/14/23 12/17/24 History
cholecalciferol (vitamin D3) 50 50 mcg PO DAILY Supplement 06/01/24 12/17/24 History
mcg (2,000 unit) tablet
cranberry 4,200 mg PO DAILY Supplement 06/01/24 12/17/24 History
therapeutic multivitamin 1 tab PO DAILY Supplement 06/01/24 12/17/24 History
Physical Exam
Vital Signs
Vital Signs
Temp Pulse Resp BP Pulse Ox
97.4 F 62 14 148/74 100
12/17/24 07:38 12/17/24 09:15 12/17/24 09:15 12/17/24 09:15 12/17/24 09:15
Lab / Testing Results
Laboratory Results
12/17/24 03:42
12/17/24 03:42
Physical Exam
intubated
Velez draining cloudy sameer urine
Assessment / Plan
-
Urosepsis with left ureteral stone
Rec: emergently to OR for stenting to alleviate obstruction
ex- who states she has POA d/w adult daughter on phone in ED room to provide consent for surgery
Data Reviewed
-
CT Scan: Image personally visualized and interpreted
Lab Data: Labs Reviewed
Old Records: Reviewed
--- NOTE | 2024-12-17 09:52 | EDRN ---
verbal report given to the receiving OR nurse Sammie BUSCH
--- NOTE | 2024-12-17 09:59 | EDRN ---
Hospitalist Dr. Latif currently at the pts bedside speaking with the pt
--- NOTE | 2024-12-17 10:26 | W.IMMPOSTOP ---
Surgical Immed Post Op Note
-
Primary Surgeon: Henry
Pre-op Diagnosis: Left ureteral stone, obstructing; Uroseptic shock, Quadriplegia with NGB
Post-op Diagnosis: same
Procedure Performed: cysto, left ureteral stone dislodgement, stenting
Anesthesia Type: gen
Specimen / Cultures: none
Estimated Blood Loss: none
Complications: none
Operative Findings: 4 mm proximal left ureteral stone; purulent urine
6 fe 24 cm left ureteral stent placed
[2024-12-17] MEDS: SUBLIMAZE 100 IV (11:06)
[2024-12-17] MEDS: SUBLIMAZE 70 MCG IV (11:06)
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
--- NOTE | 2024-12-17 13:51 | PTCARENOTE ---
Received pt from OR around 1100 intubated. Had been paralyzed prior to transfer by anesthesia, fentanyl bolus and gtt initiated upon arrival as ordered. Complete chg bath completed. Pt on levo gtt as charted and ivf resumed as ordered. Daughter
and ex /poa in room to see pt once settled. Numbers on chart. Otherwise please see worklist.
[2024-12-17 14:45] LABS: B.E. -3.1 mmol/L; HCO3 21.1 mmol/L (21-28); O2 Saturation % 99.2 % (94-98); PCO2 34 mmHg (35-48); PO2 171 mmHg (83-108)
[2024-12-17] MEDS: HEPARIN 5000 UNITS SC (15:49)
[2024-12-17 15:57] LABS: INR 1.73; PT 20.5 Sec (11.4-14.6)
[2024-12-17 15:58] LABS: APTT 47.2 Sec (23.4-35.0)
--- NOTE | 2024-12-17 16:01 | PTCARENOTE ---
pt woke up during mouth care anxious and trying to manipulate ett. spoke with Dr He and pt placed on wean. Doing well currently. Trying again to wean levo as tolerated. See worklist.
[2024-12-17 16:05] LABS: Urine Albumin 3+ (Neg - Trace); Urine Bilirubin Negative (Negative); Urine Character Cloudy (Clear); Urine Color Yellow; Urine Glucose Negative (Negative); Urine Ketone Negative (Negative); Urine Leukocyte 3+ (Negative); Urine Nitrite Negative (Negative); Urine Occult Blood 4+ (Negative); Urine Urobilinogen Negative (Neg - 1+)
[2024-12-17 16:58] LABS: Urine Squamous Cell >30 /LPF (Few)
[2024-12-17 16:59] LABS: Urine Bacteria Many (Negative); Urine Red Blood Cell 50-60 /HPF (0-2); Urine White Cell >100 /HPF (0-5)
[2024-12-17 17:42] LABS: B.E. -2.8 mmol/L; HCO3 21.9 mmol/L (21-28); O2 Saturation % 98.9 % (94-98); PCO2 37 mmHg (35-48); PO2 120 mmHg (83-108); pH 7.38 (7.35-7.45)
--- NOTE | 2024-12-17 17:44 | PTCARENOTE ---
abg drawn and ent. bp borderline, pt having periods of apnea so no extubation today. Otherwise no changes.
[2024-12-17] MEDS: SUBLIMAZE 50 MCG IV (22:46)
--- NOTE | 2024-12-17 23:34 | PTCARENOTE ---
Patient received in bed on mechanical ventilation. Pt's on fentanyl gtt at 25 mcg/hr, and Levophed at 3 mcg/min. The patient is awake and able to follow commands. Nods head yes/no to simple questions. Pt's mouthing words- asking for ETT to be moved
due to discomfort. The patient has a small scab to his inner upper right lip. Sinus rhythm on the monitor. Doppler pulses present to b/l DPs and PTs. Skin is warm and dry. PIV. #8 ETT and 27 at the lip. SpO2 at 99% on ventilator setting ASV FiO2
40%, PEEP +5. +BS. Velez catheter is intact and draining yellow urine with sediment. mouth care provided. Pt repositioned using bed sling.
[2024-12-18] VITALS (58 sets, daily range): BP systolic 57–182; BP diastolic 34–93; PULSE 2–127; BMI 21.5
[2024-12-18] MEDS: LR 1000 IV ×4 (00:55→22:26)
[2024-12-18] MEDS: HEPARIN 5000 UNITS SC ×4 (00:55→23:49)
[2024-12-18] MEDS: SUBLIMAZE 50 MCG IV (02:26)
[2024-12-18 04:43] LABS: Hematocrit 30.3 % (39.0-52.0); Hemoglobin 10.6 g/dL (13.0-18.0); Mean Corpuscular Hgb 29.4 pg (27.0-31.0); Mean Corpuscular Volume 83.9 fL (80.0-94.0); Mean Platelet Volume 11.6 fL (7.4-10.4); Platelet Count 159 10^3/uL (130-400); Red Blood Cell Count 3.61 10^6/uL (4.70-6.10); Red Cell Dist. Width 15.1 % (11.5-14.5)
[2024-12-18 05:04] LABS: Blood Urea Nitrogen 41 mg/dl (9-20); Calcium 7.7 mg/dl (8.4-10.2); Carbon Dioxide 20 mmol/L (22-30); Chloride 98 mmol/L (98-107); Estimated Creatinine Clearance 45 ml/min; Glucose 57 mg/dl (70-99); Potassium 4.6 mmol/L (3.5-5.1); Sodium 129 mmol/L (135-145); eGFR 48.85
--- NOTE | 2024-12-18 05:30 | PTCARENOTE ---
Patient reassessed. PRN administered for pain. Pt declines hygiene care. Turns and repositioning continued.
[2024-12-18 07:15] LABS: Platelets Checked Yes
[2024-12-18 07:16] LABS: Normal RBC Morphology No
[2024-12-18 07:18] LABS: Absolute Neutrophils -Man Diff 8.4 10^3/uL (1.4-6.5); Anisocytosis Slight; Band Neutrophils 26 % (0-3); Lymphocytes 5 % (20-51); Metamyelocytes 1 % (-); Ovalocytes Slight; Segmented Neutrophils 68 % (42-75)
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
[2024-12-18 07:19] LABS: Total Cells Counted 100
--- NOTE | 2024-12-18 08:00 | PTCARENOTE ---
Received pt @ change of shift intubated/sedated. Opens eye spont/tracks and follows simple commands to best of ability; quad @ baseline by able to move R arm slightly. Nods head 'no' to pain. SAT initiated @ 0745, fent gtt off- see flow sheet.
SBT initiated by RT @ 0800 to vent settings CPAP 5/5/.40. #8.0 ett, secured 27cm @ center. Suctioned for scant secretions from ett; +cough/gag. Auscultated dim breath sounds throughout. Hypoactive BS; inc BM. Chronic leong in place draining
cloudy/sediment/yellow urine. Repositioned per protocol. Pt. informed on plan of care. Nods head yes in understanding. Safe environment maintained.
[2024-12-18 09:03] LABS: Glucose - Point of Care 79 mg/dl (70-99)
--- NOTE | 2024-12-18 10:40 | W.PN.ANS.POP ---
Anesthesia Post Operative
- Anesthesia Post Op Note
Vital Signs Stable-See Nursing Note: Yes
Airway Patent: Yes
Adequate Pain Control: Yes
Change in Mental Status: No
Current Postoperative Nausea & Vomiting: No
Anesthesia Complications: No
General Anesthetic Recall: No
Unplanned Admission: No
Post Op Hydration Adequate: Yes
[2024-12-18] MEDS: STERILE WATER FOR INJECTION 10 ML IV ×2 (10:42→22:05)
[2024-12-18] MEDS: MAXIPIME 1000 MG IV ×2 (10:42→22:05)
--- NOTE | 2024-12-18 11:00 | PTCARENOTE ---
Addendum entered by Susana Whitley RN 12/18/24 14:32:
levo gtt also tapered to off- see flow sheet.
Original Note:
pt. remained on CPAP wean until 0900. Dr. He to bedside to assess during wean. Further orders received to extubate. Pt. extubated by RT @ 0915 to 2LNC, no s/s of resp distress. Family to bedside, updated.
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
--- NOTE | 2024-12-18 12:00 | W.PN.URO.CBU ---
Today's Communication / Plan
-
critical care per medical team
Assessment / Plan
-
improved; now extubated
Diagnosis
-
Date of Service: December 18, 2024
-
Patient Diagnosis:
Urosepsis with left ureteral stone
s/p emergency left ureteral stenting
Post Op Day: 1
Objective
-
Vital Signs
Temp Pulse Resp BP Pulse Ox
101.2 F H 98 13 132/69 94
12/18/24 11:05 12/18/24 10:30 12/18/24 10:30 12/18/24 10:30 12/18/24 10:30
Intake and Output
12/17/24 12/18/24 12/19/24
06:59 06:59 06:59
Intake Total 2903.3 / 3133.3 725 / 725
Output Total 850 / 850 200 / 200
Balance 2053.3 / 2283.3 525 / 525
Intake:
IV fluids (Total) 2903.3 / 3133.3 725 / 725
Lr 1,000 ml @ 150 mls/hr IV . 2650 / 2800 600 / 600
Q6H40M CR Rx#:[id number]
fentanyl 55.1 / 105.1 50 / 50
levo 198.2 / 228.2 75 / 75
Output:
Urine, Velez 850 / 850 200 / 200
Laboratory Results
12/18/24 04:27
12/18/24 04:27
Physical Exam
-
General - well developed, well nourished, no acute distress
Chest - clear bilaterally
Abdomen - soft, non-tender, positive bowel sounds, no CVAT, no incisional pain or distention
Genitalia - normal
Rectal - normal
Skin - warm & dry with no rash
Neuro - AOx3, no motor deficits
Extremities - no clubbing, no cyanosis, no edema
Incision - clean, dry
Dressing - clean, dry, intact
[2024-12-18] MEDS: OFIRMEV 100 IV (12:26)
--- NOTE | 2024-12-18 14:09 | CM ---
computer project manager reviewed patient's chart and met with patient his ex- and 2 daughters at bedside, patient lives in an apartment at [facility] alone, patient is bedbound, has care givers 12 hours per day per spouse and she assists in evening,
patient's ex spouse lives in a different apartment at [facility]. Patient has hospital bed and scooter at his apartment. Plan is to return to [facility] when stable with [facility] visiting nurses, referral sent to [facility] visiting
nurses.
Pharmacy: [facility] in [place]
Plan; To return to [facility] apartments with [facility] visiting nurses.
[facility]
[phone]
--- NOTE | 2024-12-18 14:34 | PTCARENOTE ---
Pt. naya lifted OOB to chair @ approx 1200, remains OOB to chair @ this time. Tolerating position. Frequent mouth care provided. Pt. tolerating intermittent ice chips. Remains off levo. Assisted w repositioning in chair per protocol. Safe
environment maintained.
--- NOTE | 2024-12-18 20:00 | PTCARENOTE ---
Rec'd pt watching TV, answers questions appropriately, quad, able to move R arm only, SR w/ occas pvc, distal pulses via doppler,skin wafrm/dry, O2 2 liters nc, lungs decr in bases,sat 97, hypo bowel sounds, no bm, abd soft, NPO leong draining
cloudy yellow urine w/ sediment
--- NOTE | 2024-12-18 22:00 | PTCARENOTE ---
afib, rate 115-125, K romel Hays aware, bp stable, ekg done, placed on bipap 12/5 w/ 2 liters nc- to assess if HR slows
[2024-12-18] MEDS: LOPRESSOR 2.5 MG IV (22:27)
--- NOTE | 2024-12-18 22:29 | PTCARENOTE ---
lopressor 2.5mg iv given per order
--- NOTE | 2024-12-18 22:55 | PTCARENOTE ---
cardizem 10mg iv given followed by card gtt at 5mg per order
[2024-12-18] MEDS: CARDIZEM 10 MG IV (22:59)
[2024-12-18] MEDS: CARDIZEM 125 IV (22:59)
[2024-12-19] VITALS (24 sets, daily range): BP systolic 110–156; BP diastolic 68–105; PULSE 2–109; BMI 22.1
--- NOTE | 2024-12-19 00:02 | PTCARENOTE ---
patricia reviewed, changes noted, afib 90's
[2024-12-19 03:41] LABS: Hematocrit 32.3 % (39.0-52.0); Mean Corp Hgb Conc. 34.1 g/dL (33.0-37.0); Mean Corpuscular Hgb 28.6 pg (27.0-31.0); Mean Corpuscular Volume 84.1 fL (80.0-94.0); Mean Platelet Volume 10.8 fL (7.4-10.4); Platelet Count 157 10^3/uL (130-400); Red Blood Cell Count 3.84 10^6/uL (4.70-6.10); Red Cell Dist. Width 15.8 % (11.5-14.5); White Blood Cell Count 9.6 10^3/uL (4.8-10.8)
--- NOTE | 2024-12-19 03:46 | PTCARENOTE ---
sys reviewed, comf on bipap, CHG bath done, linens changed
[2024-12-19 04:33] LABS: Blood Urea Nitrogen 32 mg/dl (9-20); Carbon Dioxide 18 mmol/L (22-30); Chloride 102 mmol/L (98-107); Estimated Creatinine Clearance 69 ml/min; Glucose 40 mg/dl (70-99); Potassium 4.1 mmol/L (3.5-5.1); Sodium 134 mmol/L (135-145); eGFR > 60.00
[2024-12-19] MEDS: DEXTROSE 50% SYRINGE 25 GRAMS IV (04:35)
--- NOTE | 2024-12-19 04:35 | PTCARENOTE ---
lab called w/ glucose result of 40- pt awake, asymptomatic, K CANDIS Hays aware- 1 amp d50 iv given, repeat 145
[2024-12-19 05:19] LABS: Glucose - Point of Care 145 mg/dl (70-99)
[2024-12-19] MEDS: LR 1000 IV ×3 (06:09→22:43)
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
--- NOTE | 2024-12-19 08:00 | PTCARENOTE ---
Received pt awake and alert. He is maintained n BiPap. Respiratory therapist called to place on 2 liters nasal canula.He is only able to flex his left upper extremity at the elbow. Good peripheral pulses, no edema. Right FA with IVF, left FA with
Cardizem 2.5mg/hr. Right AC#20g protective catheter flushed and patent. Breath sounds diminished in the bases. Moist cough at time able to suction clear secretions. Sacral foam dressing peeled back for skin assessment. Blister popped leaking serous
fluid. Now appears to be a DTI. Wound consult ordered, cleansed, skin barrier applied and new silicone border dressing placed. Pt's caregiver at the bedside. Performed his bowel regimen. He was repositioned, indwelling Velez catheter with cloudy
yellow urine with sediment. Heels elevated on pillows. Safe environment maintained. Will continue supportive care.
[2024-12-19 08:42] LABS: Absolute Neutrophils -Man Diff 8.1 10^3/uL (1.4-6.5); Band Neutrophils 19 % (0-3); Lymphocytes 10 % (20-51); Monocytes 5 % (2-9); Normal RBC Morphology Yes; Platelets Checked Yes; Segmented Neutrophils 66 % (42-75); Total Cells Counted 100
[2024-12-19] MEDS: HEPARIN 5000 UNITS SC (08:58)
--- NOTE | 2024-12-19 09:08 | W.PN.URO.CBU ---
Today's Communication / Plan
-
despite urine cx, would treat for Pseudomonas x 3 weeks
will return pt to OR in ~ 2 weeks to remove infected ureteral and renal stones
Assessment / Plan
-
improved; now extubated
Diagnosis
-
Date of Service: December 19, 2024
-
Patient Diagnosis:
Urosepsis with left ureteral stone
s/p emergency left ureteral stenting
Post Op Day: 2
Subjective
-
awake in ICU bed
Objective
-
Vital Signs
Temp Pulse Resp BP Pulse Ox
98.1 F 102 19 148/105 100
12/19/24 07:30 12/19/24 08:00 12/19/24 08:00 12/19/24 08:00 12/19/24 07:30
Intake and Output
12/18/24 12/19/24 12/20/24
06:59 06:59 06:59
Intake Total 2903.3 / 3133.3 3242.5 / 3365.0 250.0 / 250.0
Output Total 850 / 850 3125 / 3125 350 / 350
Balance 2053.3 / 2283.3 117.5 / 240.0 -100.0 / -100.0
Intake:
IV fluids (Total) 2903.3 / 3133.3 3242.5 / 3365.0 247.5 / 247.5
Lr 1,000 ml @ 125 mls/hr IV . 2650 / 2800 3100 / 3220 245 / 245
Q8H CR Rx#:[id number]
cardizem 17.5 / 20.0 2.5 / 2.5
fentanyl 55.1 / 105.1 50 / 50
levo 198.2 / 228.2 75 / 75
IV piggybacks 2.5 / 2.5
Output:
Urine, Velez 850 / 850 3125 / 3125 350 / 350
Laboratory Results
12/19/24 03:06
12/19/24 03:06
Physical Exam
-
General - no acute distress
Genitalia - Velez draining urine
[2024-12-19] MEDS: MAXIPIME 1000 MG IV ×2 (10:08→21:48)
[2024-12-19] MEDS: STERILE WATER FOR INJECTION 10 ML IV ×2 (10:09→21:49)
--- NOTE | 2024-12-19 10:42 | PTOTSP ---
Dysphagia Evaluation
Patient with history of unspecified pharyngeal dysphagia. Signs concerning for aspiration observed with rapid ingestion of thin liquids via consecutive straw sips. No s/s with single sips. Solids could not be assessed due to patient refusal.
Patient on chopped solids at baseline per caregiver.
Recommend:
1. IDDSI Level 5 Minced and Moist, Thin Liquids - SINGLE SIPS
2. Medications: crushed in puree as needed
3. Strategies: upright to 90 degrees, FULL supervision, assist with set up to self-feed with right upper extremity and home equipment, small single sips/bites, slow rate
4. Oral care 3-5x daily
5. Brief dysphagia f/u at the acute care level
[2024-12-19] MEDS: DEXTROSE 50% SYRINGE 12.5 GRAMS IV (12:41)
[2024-12-19] MEDS: FLORINEF 0.05 MG PO ×2 (12:41→20:03)
[2024-12-19] MEDS: LOPRESSOR 12.5 MG PO ×2 (12:42→20:03)
[2024-12-19 12:45] LABS: Glucose - Point of Care 60 mg/dl (70-99)
[2024-12-19] MEDS: LIORESAL 30 MG PO ×3 (12:50→20:03)
[2024-12-19 13:16] LABS: Glucose - Point of Care 112 mg/dl (70-99)
--- NOTE | 2024-12-19 13:33 | TRANSFER ---
Report called to 4th floor to Nataly BUSCH. Pt will be transported via bed with waffle overlay mattress.
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
--- NOTE | 2024-12-19 14:13 | WOUNDNOTE ---
SACRUM AND GLUTEAL CLEFT VERTICAL
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
--- NOTE | 2024-12-19 15:34 | CM ---
CM following re:discharge planning.
Discussed in rounds, reviewed pt's chart, met with pt.
Pt lives in an apartment at [facility] alone, patient is bedbound, has care givers 12 hours per day per spouse and she assists in evening, patient's ex spouse lives in a different apartment at [facility]. Patient has hospital bed and scooter at
his apartment. Plan is to return to [facility] when stable with [facility] visiting nurses.
Please fax discharge instructions to [facility] [phone]
D/C plan: return back to his living arrangements at [facility] independent apartment with [facility], resumptions of caregiver services and family support.
CM will follow with discharge plan updates as hospitalization progresses
[2024-12-19] MEDS: ZANAFLEX 4 MG PO ×2 (16:03→21:49)
[2024-12-19 16:48] LABS: Glucose - Point of Care 88 mg/dl (70-99)
[2024-12-19] MEDS: LOVENOX 40 MG SC (17:59)
[2024-12-19 21:47] LABS: Glucose - Point of Care 142 mg/dl (70-99)
[2024-12-20] VITALS (9 sets, daily range): BP systolic 84–158; BP diastolic 48–98; PULSE 2–80
[2024-12-20] MEDS: LR 1000 IV (05:57)
[2024-12-20 07:51] LABS: Glucose - Point of Care 84 mg/dl (70-99)
[2024-12-20] MEDS: FLORINEF 0.05 MG PO ×2 (08:30→20:26)
[2024-12-20] MEDS: LOPRESSOR 12.5 MG PO ×2 (08:31→20:26)
[2024-12-20] MEDS: ZANAFLEX 4 MG PO ×3 (08:32→21:12)
[2024-12-20] MEDS: LIORESAL 30 MG PO ×4 (08:32→20:29)
[2024-12-20] MEDS: LOW STRENGTH ASPIRIN 81 MG PO (08:35)
[2024-12-20 08:39] LABS: Blood Urea Nitrogen 24 mg/dl (9-20); Calcium 7.6 mg/dl (8.4-10.2); Carbon Dioxide 24 mmol/L (22-30); Chloride 98 mmol/L (98-107); Estimated Creatinine Clearance 98 ml/min; Glucose 89 mg/dl (70-99); Potassium 3.2 mmol/L (3.5-5.1); Sodium 130 mmol/L (135-145); eGFR > 60.00
--- NOTE | 2024-12-20 08:45 | W.PN.URO.CBU ---
Today's Communication / Plan
-
to f/u in 10-14 days for outpatient ureteroscopy to remove left renal and ureteral stones
Assessment / Plan
-
improved; being transferred from ICU to telemetry
Diagnosis
-
Date of Service: December 20, 2024
-
Patient Diagnosis:
Urosepsis with left ureteral stone
s/p emergency left ureteral stenting
Post Op Day: 3
Objective
-
Vital Signs
Temp Pulse Resp BP Pulse Ox
98.4 F 66 18 146/79 93
12/20/24 07:00 12/20/24 07:00 12/20/24 07:00 12/20/24 08:31 12/20/24 07:00
Intake and Output
12/19/24 12/20/24 12/21/24
06:59 06:59 06:59
Intake Total 3242.5 / 3365.0 3225.0 / 3225.0
Output Total 312 / 3125 2074
Balance 117.5 / 240.0 1150.0 / 1150.0
Intake:
Oral fluids 960 / 960
IV fluids (Total) 3242.5 / 3365.0 2262.5 / 2262.5
Lr 1,000 ml @ 125 mls/hr IV . 3100 / 3220 995 / 995
Q8H CR Rx#:[id number]
cardizem 17.5 / 20.0 17.5 / 17.5
fentanyl 50 / 50
levo 75 / 75
IV piggybacks 2.5 / 2.5
Output:
Urine, Velez 3125 / 3125 2074
Laboratory Results
12/19/24 03:06
12/20/24 07:27
Physical Exam
-
Genitalia - Velez in place
--- NOTE | 2024-12-20 09:28 | PN.CDI ---
CDI
- -
CDI:
Physician Documentation Request
Admit Date: 12/17/24 09:35
Dear Doctor Cade,
Please review the following and provide your response in the progress notes.
Clinical Indicators:
- RN skin assessments indicate Stage 2 sacrum pressure injury, POA
Physician documentation of the type and location of wounds is required for compliant documentation. Based on the above clinical findings and your assessment, please provide the following in your progress note:
1. Location of the ulcer/wound, including laterality.
2. Type (etiology) of ulcer/wound:
- Diabetic ulcer
- Arterial (ischemic) ulcer
- Traumatic wound
- Venous stasis ulcer
- Pressure (decubitus) ulcer
- Non-healing surgical wound
- Other
Use of terms such as suspected, likely, concern for, or probable (associated with a specific diagnosis that is being evaluated, monitored, or treated as if it exists) are acceptable and can be coded in the inpatient setting, when documented at the
time of discharge.
Thank you,
Jacob Erwin RN
CDI Specialist
Please use your independent medical judgment in providing your response.
*Source: National Pressure Ulcer Advisory Panel (NPUAP)
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
[2024-12-20] MEDS: MAXIPIME 1000 MG IV ×2 (10:19→21:12)
[2024-12-20] MEDS: STERILE WATER FOR INJECTION 10 ML IV ×2 (10:19→21:12)
[2024-12-20 11:51] LABS: Glucose - Point of Care 125 mg/dl (70-99)
--- NOTE | 2024-12-20 15:40 | CM ---
CM reviewed chart, received call from Yisel at [facility] inquiring about patient discharge, likely within next 24 hours per Physician. Updates sent to [facility] through [facility]. CM will continue to follow for all discharge planning needs.
Plan; return to [facility] [place] with VN, private caregivers.
Please fax discharge instructions to [facility] at [phone]
[2024-12-20 17:00] LABS: Glucose - Point of Care 140 mg/dl (70-99)
[2024-12-20] MEDS: LOVENOX 40 MG SC (17:11)
[2024-12-20 21:54] LABS: Glucose - Point of Care 100 mg/dl (70-99)
[2024-12-21 03:39] VITALS: BP 164/91
[2024-12-21 07:00] VITALS: BP 157/72
[2024-12-21 07:43] LABS: Glucose - Point of Care 76 mg/dl (70-99)
--- NOTE | 2024-12-21 08:59 | CM ---
Addendum entered by Dimple Holguin 12/21/24 09:12:
Patient scheduled for 12:00 p.m. ambulance transport, updated with transport time, she will be home to receive patient.
Original Note:
CM reviewed chart, patient for discharge today, return to [facility] with caregivers, spouse, and VN. Phone call to patients , Lilly, to discuss discharge, confirmed someone will be home when patient returns. IMM verbally reviewed with ,
agreeable to discharge, form placed in chart. Patient will require ambulance transport. CM will continue to follow for all discharge planning needs.
Plan; return to [facility] with VN, private caregivers.
Please fax discharge instructions to [facility] at [phone]
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
[2024-12-21] MEDS: MAXIPIME 1000 MG IV (09:29)
[2024-12-21] MEDS: STERILE WATER FOR INJECTION 10 ML IV (09:29)
[2024-12-21] MEDS: FLORINEF 0.05 MG PO (09:30)
[2024-12-21] MEDS: ZANAFLEX 4 MG PO (09:30)
[2024-12-21] MEDS: LOW STRENGTH ASPIRIN 81 MG PO (09:31)
[2024-12-21] MEDS: LOPRESSOR 12.5 MG PO (09:31)
[2024-12-21] MEDS: LIORESAL 30 MG PO (09:33)
[2024-12-21] MEDS: FLUAD (65 yr+) 2024-2025 FORMULA 0.5 ML IM (09:34)
[2024-12-21 11:00] VITALS: BP 144/76
[2024-12-21 12:35] LABS: Blood Urea Nitrogen 17 mg/dl (9-20); Carbon Dioxide 31 mmol/L (22-30); Chloride 96 mmol/L (98-107); Estimated Creatinine Clearance 98 ml/min; Glucose 121 mg/dl (70-99); Potassium 3.4 mmol/L (3.5-5.1); Sodium 133 mmol/L (135-145); eGFR > 60.00
--- NOTE | 2024-12-22 06:45 | W.DCSUMMARY ---
Discharge Summary
Discharge Data
Date of Admission: 12/17/24
Date of Discharge: 12/21/24
-
Pending Results: No
Hospital Course
74 years old male presented with history of lethargy, generalized weakness and hypotension. Upon arrival to the emergency room, he met the criteria of sepsis and septic shock. His condition deteriorated rapidly and became unresponsive. Patient
required a pressure support medication was intubated in the emergency room. Patient had history of chronic hypotension and on midodrine/Florinef as outpatient. Patient is a quadriplegic with chronic indwelling Velez history. Patient was evaluated
by urologist. He was taken to the OR and underwent cystoscopy with dislodgment of left ureteral stone, left ureteral stent insertion. Patient was transferred to the intensive care unit. He received intravenous antibiotics. He was successfully
extubated. Blood pressure support medication was weaned off. Patient was evaluated by speech therapy and was started on oral diet. Urine and blood culture did not show any growth. Patient was transferred out of ICU. He started to improve. He
remained hemodynamically stable. Urologist recommended outpatient follow-up for removal of the stent. Patient did not need oxygen supplementation. Patient was noted to have paroxysmal atrial fibrillation but converted back to sinus rhythm
spontaneously. Patient was not on systemic anticoagulation or rate control medication. He was started on low-dose beta-park. Anticoagulation option was discussed with patient and family. Patient wanted to be on aspirin at the present time and
declined systemic anticoagulation. His heart rhythm remained in sinus rhythm with no arrhythmias. manager user interface evaluated the patient. He was discharged back to long-term in a stable condition.
Discharge Plan
-
Patient Disposition: Home with Home Care
Discharge Diagnosis/Procedures: Left ureteral obstructive stone and Pyelonephritis:
Status post emergent left ureteral stenting & stone dislodgment on 12/17
Urine and blood cultures showed no growth
Follow up 10-14 days for outpatient ureteroscopy to remove left renal and ureteral stones
Condition: Good
Diet: As tolerated
Referrals:
Alok Figueroa MD [Active] - (call to schedule ureteroscopy, stone removal during week of 01/02)
UNKNOWN - PT DOES,NOT KNOW [Family Provider] -
Prescriptions:
New
aspirin 81 mg Tablet,Chewable
81 mg PO DAILY Qty: 30 0RF
metoprolol tartrate 25 mg Tablet
12.5 mg PO BID Qty: 60 0RF
cefuroxime axetil 250 mg tablet
250 mg PO BID Qty: 4 0RF
Continued
tizanidine 2 MG tablet
2 mg PO BID@0800,1600
tolterodine 4 MG capsule,extended release 24hr
4 mg PO HS
baclofen 10 MG tablet
30 mg PO QID@08,12,16,20
gabapentin 100 MG capsule
100 mg PO TID@0800,1200,1600
famotidine 20 MG tablet
20 mg PO DAILY
fludrocortisone 0.1 MG tablet
0.05 mg PO BID@1030,1430
tizanidine 2 mg tablet
4 mg PO BID@1200,2000
therapeutic multivitamin Tablet
1 tab PO DAILY
cholecalciferol (vitamin D3) 50 mcg (2,000 unit) Tablet
50 mcg PO DAILY
cranberry
4,200 mg PO DAILY
Discharge Orders:
Discharge Patient (As Directed); Ordered 12/21/24
Ordered By: Neal Mohamud
Discharge Date and Time
Discharge Date/Time: 12/21/24 12:23
Print Language: FRENCH
== END 2024-12-21 12:23 | disposition home health service (06) | DRG 853 ==
LOC: 4 WEST ACU 09:35
PROVIDERS: Emergency Medicine; Internal Medicine Critical Care Medicine; ADMITTING PHYSICIAN Hospitalist; ATTENDING PHYSICIAN Internal Medicine; CONSULT PHYSICIAN Internal Medicine Critical Care Medicine; CONSULT PHYSICIAN Specialist; EMERGENCY PHYSICIAN Emergency Medicine
PROC: 5A1935Z Respiratory Ventilation, Less than 24 Consecutive Hours (ICD-10-PCS; 2024-12-17)
PROC: 0T778DZ Dilation of Left Ureter with Intraluminal Device, Via Natural or Artificial Opening Endoscopic (ICD-10-PCS; 2024-12-17)
DX: A41.9 Sepsis, unspecified organism (principal); G82.50 Quadriplegia, unspecified; R65.21 Severe sepsis with septic shock; J96.91 Respiratory failure, unspecified with hypoxia; N20.2 Calculus of kidney with calculus of ureter; N13.6 Pyonephrosis; N17.9 Acute kidney failure, unspecified; E87.1 Hypo-osmolality and hyponatremia; J98.11 Atelectasis; L89.152 Pressure ulcer of sacral region, stage 2; E87.6 Hypokalemia; E87.5 Hyperkalemia; D64.9 Anemia, unspecified; I48.0 Paroxysmal atrial fibrillation; G90.9 Disorder of the autonomic nervous system, unspecified; N31.9 Neuromuscular dysfunction of bladder, unspecified; Z87.442 Personal history of urinary calculi
CPT/HCPCS: 31500; 36600; 71045; 71046; 74018; 74176; 76000; 80048; 80053; 81003; 81015; 82805; 82962; 83605; 84484; 85025; 85610; 85730; 87040; 87070; 87086; 90662; 92526; 92610; 93005; 94002; 94003; 94660; 96365; 96375; 99291; C2617; G0008

== ENCOUNTER 2025-01-27 06:18 | Day surgery (SDC) | payer MEDICARE, BC, SELFPAY ==
[2025-01-27] VITALS (7 sets, daily range): BP systolic 93–154; BP diastolic 23–87; BMI 20.4
[2025-01-27] MEDS: NORMOSOL-R/PLASMALYTE-A 1000 IV (07:52)
[2025-01-30 14:47] LABS: Stone Analysis Mass 106 mg
== END 2025-01-27 11:49 | disposition home or self-care (01) ==
LOC: SDS 06:18
PROVIDERS: ATTENDING PHYSICIAN Specialist
DX: N20.2 Calculus of kidney with calculus of ureter (principal)
CPT/HCPCS: 52356; 74018; 76000; 82365; C1894; C2617